=== PATIENT | male | born 1950 | race Caucasian/White ===

== ENCOUNTER 2018-07-24 09:23 | Outpatient (CLI) | payer MEDICARE, OTHER ==
[~2018-07-24 09:23] MED LIST: AMLO5TAB4 PO; BUPR150T8 PO; CHOL400C8 PO; CLOP75TA15 PO; CYA500T PO; CYCL-1 PO; ESCI5TAB PO; FINA5TAB11 PO; FLAX1CAP4 PO; GLYB5TAB7 PO; ISOS30TA6 PO; KRIL1CAP12 PO; LOSA50TA3 PO; METF500T7 PO; METO-395 PO; MULT-1085 PO; OMEG1CAP2 PO; PITA4TAB2 PO; UBID30CA8 PO; ZINC50TA60 PO
[2018-07-24] MEDS ORDERED: TAMS0.4C32 PO (11:05)
[2018-07-24] MEDS ORDERED: SIMV10TA6 PO (11:05)
--- NOTE | 2018-07-24 11:06 | NUR ---
Patient ambulated independently from [facility] and was admitted to outpatient wound care for physician visit with Forrest Mark MD. Dressing removed, wound cleansed and lidocaine applied per order. Patient assessed for changes in conditions, medications and medical history. Dr. Mark at bedside accompanied by RN. Wound assessed, time out performed by MD/RN. Wound debrided as detailed in the physician progress/procedure note. Plan of care discussed with patient. Dressings placed per MD orders. BELKIS done today. Patient instructed on the signs and symptoms of infection and to call the Wound Center if any occur or to go to the ED if we are closed: Increased pain in wound Increase in drainage from the wound Redness in the skin surrounding the wound Bleeding from the wound Temperature of 101 or greater Patient instructed that elevated blood sugars delay healing of the wound and can cause further complications including but not limited to amputation of toes or feet. Patient instructed that the weight of their body puts a large amount of pressure on their wounds. This pressure keeps the new tissue from growing and inhibits new blood vessels from forming. Explained that, if they continue to bear weight on a body part that has a wound, the time it takes to heal the wound increases, the wound may get worse or the wound may not heal at all. Patient verbalized understanding of all discharge instructions and plan of care and ambulated independently out to [facility] in stable condition with no sign or symptom of distress at time of discharge. Addendum: 07/24/18 at 1108 by Bhargavi Cunningham RN Amended: Links added.
== END 2018-07-24 12:05 | disposition home or self-care (01) ==
LOC: WOUND CARE 09:23 → EDSTATUS 09:30 → WOUND CARE 12:05
PROVIDERS: ATTEND Surgery
DX: E11.622 Type 2 diabetes mellitus with other skin ulcer (principal); L89.899 Pressure ulcer of other site, unspecified stage; L97.221 Non-pressure chronic ulcer of left calf limited to breakdown of skin; I12.9 Hypertensive chronic kidney disease with stage 1 through stage 4 chronic kidney disease, or unspecified chronic kidney disease; N18.3 Chronic kidney disease, stage 3 (moderate); E78.5 Hyperlipidemia, unspecified; E66.9 Obesity, unspecified; I25.2 Old myocardial infarction; I25.10 Atherosclerotic heart disease of native coronary artery without angina pectoris; M17.11 Unilateral primary osteoarthritis, right knee; F41.8 Other specified anxiety disorders; F32.9 Major depressive disorder, single episode, unspecified; Z95.1 Presence of aortocoronary bypass graft; Z79.1 Long term (current) use of non-steroidal anti-inflammatories (NSAID); Z68.34 Body mass index [BMI] 34.0-34.9, adult; Z96.698 Presence of other orthopedic joint implants
CPT/HCPCS: 36416; 82948; 93922; 93926; G0463; A6196; A6212

== ENCOUNTER 2018-07-29 09:15 | Day surgery (SDC) | payer MEDICARE, OTHER ==
[~2018-07-29 09:15] MED LIST changes: -CLOP75TA15 PO; -CYCL-1 PO; -FINA5TAB11 PO; -FLAX1CAP4 PO; -ISOS30TA6 PO; -LOSA50TA3 PO; -OMEG1CAP2 PO; -PITA4TAB2 PO; +SIMV10TA6 PO; +TAMS0.4C32 PO; -UBID30CA8 PO; -ZINC50TA60 PO
[2018-07-29] MEDS ORDERED: LIDOcaine/PRILOcaine 5gm cream TP ONE (09:40)
--- NOTE | 2018-07-29 12:59 | NUR ---
Patient ambulated independently from [facility] and was admitted to outpatient wound care for physician visit with Forrest Mark MD. Dressing removed, wound cleansed and lidocaine applied per order. Patient assessed for changes in conditions, medications and medical history. Dr. Mark at bedside accompanied by RN. Wound assessed, time out performed by MD/RN. Wound debrided as detailed in the physician progress/procedure note. Plan of care discussed with patient. Dressings placed per MD orders. Patient instructed on the signs and symptoms of infection and to call the Wound Center if any occur or to go to the ED if we are closed: Increased pain in wound Increase in drainage from the wound Redness in the skin surrounding the wound Bleeding from the wound Temperature of 101 or greater Patient instructed that elevated blood sugars delay healing of the wound and can cause further complications including but not limited to amputation of toes or feet. Patient instructed that the weight of their body puts a large amount of pressure on their wounds. This pressure keeps the new tissue from growing and inhibits new blood vessels from forming. Explained that, if they continue to bear weight on a body part that has a wound, the time it takes to heal the wound increases, the wound may get worse or the wound may not heal at all. Patient verbalized understanding of all discharge instructions and plan of care and ambulated independently out to [facility] in stable condition with no sign or symptom of distress at time of discharge. Addendum: 07/29/18 at 1301 by Bhargavi Cunningham RN Amended: Links added.
== END 2018-07-29 10:42 | disposition home or self-care (01) ==
LOC: WOUND CARE 09:15
PROVIDERS: ATTEND Surgery
DX: E11.622 Type 2 diabetes mellitus with other skin ulcer (principal); L89.899 Pressure ulcer of other site, unspecified stage; L97.221 Non-pressure chronic ulcer of left calf limited to breakdown of skin; I12.9 Hypertensive chronic kidney disease with stage 1 through stage 4 chronic kidney disease, or unspecified chronic kidney disease; N18.3 Chronic kidney disease, stage 3 (moderate); E78.5 Hyperlipidemia, unspecified; E66.9 Obesity, unspecified; I25.2 Old myocardial infarction; I25.10 Atherosclerotic heart disease of native coronary artery without angina pectoris; M17.11 Unilateral primary osteoarthritis, right knee; F41.8 Other specified anxiety disorders; F32.9 Major depressive disorder, single episode, unspecified; Z95.1 Presence of aortocoronary bypass graft; Z79.1 Long term (current) use of non-steroidal anti-inflammatories (NSAID); Z68.34 Body mass index [BMI] 34.0-34.9, adult; Z96.698 Presence of other orthopedic joint implants
CPT/HCPCS: A6021; A6212

== ENCOUNTER 2018-08-05 09:22 | Day surgery (SDC) | payer MEDICARE, OTHER ==
[2018-08-05] MEDS ORDERED: LIDOcaine/PRILOcaine 5gm cream TP ONE (09:48)
[2018-08-05] MEDS ORDERED: LIDOcaine 1%/PF 5ML 10 MG/ML VIAL ONE ×2 (10:20→10:23)
--- NOTE | 2018-08-05 15:02 | NUR ---
0900 Patient ambulated safely into [facility]. Patient admitted to outpatient wound care clinic for follow-up visit with physician. Patient placed in isolation per isolation protocol. Dressing removed, wound cleansed. Patient assessed for changes in conditions, medications and medical history. Patient showed no s/s of distress at time of assessment. 1015 at bedside accompanied by RN. Wounds assessed, time out performed and debridement and biopsy done today as detailed in the physician progress/procedure note. Plan of care discussed with patient. Dressings placed per MD orders. Patient instructed on the signs and symptoms of infection and to call the Wound Center if any occur or to go to the ED if we are closed: Increased pain in wound Increase in drainage from the wound Redness in the skin surrounding the wound Bleeding from the wound Temperature of 101 or greater Patient instructed that the weight of their body puts a large amount of pressure on their wounds. This pressure keeps the new tissue from growing and inhibits new blood vessels from forming. Explained that, if they continue to bear weight on a body part that has a wound, the time it takes to heal the wound increases, the wound may get worse or the wound may not heal at all. Patient verbalized understanding of all discharge instructions and plan of care. Patient ambulated independently out to [facility] and is in stable condition with no sign or symptom of distress at time of discharge.
== END 2018-08-05 10:55 | disposition home or self-care (01) ==
LOC: WOUND CARE 09:22
PROVIDERS: ATTEND Surgery
DX: E11.622 Type 2 diabetes mellitus with other skin ulcer (principal); L89.893 Pressure ulcer of other site, stage 3; L97.222 Non-pressure chronic ulcer of left calf with fat layer exposed; I12.9 Hypertensive chronic kidney disease with stage 1 through stage 4 chronic kidney disease, or unspecified chronic kidney disease; N18.3 Chronic kidney disease, stage 3 (moderate); E11.65 Type 2 diabetes mellitus with hyperglycemia; E78.5 Hyperlipidemia, unspecified; E66.9 Obesity, unspecified; I25.2 Old myocardial infarction; I25.10 Atherosclerotic heart disease of native coronary artery without angina pectoris; M17.11 Unilateral primary osteoarthritis, right knee; F41.8 Other specified anxiety disorders; F32.9 Major depressive disorder, single episode, unspecified; Z95.1 Presence of aortocoronary bypass graft; Z79.1 Long term (current) use of non-steroidal anti-inflammatories (NSAID); Z68.34 Body mass index [BMI] 34.0-34.9, adult; Z96.698 Presence of other orthopedic joint implants
CPT/HCPCS: 11042; 82948; 87070; 87075; 87102; 87176; A6222; J2001; 87077; 87186; 88304; A6021; A6446

== ENCOUNTER 2018-08-12 09:20 | Day surgery (SDC) | payer MEDICARE, OTHER ==
[2018-08-12] MEDS ORDERED: LIDOcaine/PRILOcaine 5gm cream TP ONE ×2 (09:50→10:13)
[2018-08-12] MEDS ORDERED: cadexomer iodine 40gm GEL.GM TP ONE (10:54)
--- NOTE | 2018-08-12 11:30 | NUR ---
Patient ambulated independently from lobby accompanied by family member and was admitted to outpatient wound care for physician visit with Forrest Mark MD. Dressing removed, wound cleansed and Emla cream applied per order. Patient assessed for changes in conditions, medications and medical history. 0940 - blood glucose 79. Patient instructed that elevated blood sugars delay healing of the wound and can cause further complications including but not limited to amputation of toes or feet. 1030 - Dr. Mark at bedside accompanied by RN. Wound assessed, time out performed by MD/RN. Wound debrided as detailed in the physician progress/procedure note. Plan of care discussed with patient. Dressings placed per MD orders. Patient instructed on the signs and symptoms of infection and to call the Wound Center if any occur or to go to the ED if we are closed: Increased pain in wound Increase in drainage from the wound Redness in the skin surrounding the wound Bleeding from the wound Temperature of 101 or greater Patient instructed that the weight of their body puts a large amount of pressure on their wounds. This pressure keeps the new tissue from growing and inhibits new blood vessels from forming. Explained that, if they continue to bear weight on a body part that has a wound, the time it takes to heal the wound increases, the wound may get worse or the wound may not heal at all. Patient verbalized understanding of all discharge instructions and plan of care and ambulated independently out to lobby accompanied by family member and is in stable condition with no sign or symptom of distress at time of discharge.
== END 2018-08-12 11:15 | disposition home or self-care (01) ==
LOC: WOUND CARE 09:20
PROVIDERS: ATTEND Surgery
DX: E11.622 Type 2 diabetes mellitus with other skin ulcer (principal); L89.893 Pressure ulcer of other site, stage 3; L97.222 Non-pressure chronic ulcer of left calf with fat layer exposed; I12.9 Hypertensive chronic kidney disease with stage 1 through stage 4 chronic kidney disease, or unspecified chronic kidney disease; N18.3 Chronic kidney disease, stage 3 (moderate); E11.65 Type 2 diabetes mellitus with hyperglycemia; E78.5 Hyperlipidemia, unspecified; E66.9 Obesity, unspecified; I25.2 Old myocardial infarction; I25.10 Atherosclerotic heart disease of native coronary artery without angina pectoris; M17.11 Unilateral primary osteoarthritis, right knee; F41.8 Other specified anxiety disorders; F32.9 Major depressive disorder, single episode, unspecified; Z95.1 Presence of aortocoronary bypass graft; Z79.1 Long term (current) use of non-steroidal anti-inflammatories (NSAID); Z68.34 Body mass index [BMI] 34.0-34.9, adult; Z96.698 Presence of other orthopedic joint implants
CPT/HCPCS: 36415; 36416; 82948; 85651; 97597; A6446

== ENCOUNTER 2018-08-15 13:41 | Inpatient (IN) | payer MEDICARE, OTHER ==
[~2018-08-15] VITALS: Ht 175.3 cm; Wt 114.0 kg
[2018-08-15] MEDS ORDERED: normal saline 1000ML IV soln IVB ONE (15:45)
[2018-08-15] MEDS ORDERED: vancomycin/NS 1 GM ADD-VANTAGE 250 ML IV ONE ×2 (15:55→16:10)
[2018-08-15] MEDS ORDERED: piperacillin/tazo 3.375gm/50ml 50 ML IV ONE (16:10)
[2018-08-15 16:21] LABS: BASOPHILS % (AUTO) 0.3 % (0-1); EOSINOPHILS # (AUTO) 0.3 X10'3 (0-0.9); EOSINOPHILS % (AUTO) 4.7 % (0-6); HEMATOCRIT 39.2 % (42.0-52.0); HEMOGLOBIN 12.6 g/dl (14.0-17.9); LYMPHOCYTES # (AUTO) 1.8 X10'3 (1.1-4.8); LYMPHOCYTES % (AUTO) 25.4 % (21-51); MEAN CORPUSCULAR HEMOGLOBIN 29.4 PG (27.0-31.0); MEAN CORPUSCULAR HGB CONC 32.2 g/dL (33.0-36.5); MEAN CORPUSCULAR VOLUME 91.3 FL (78-98); MEAN PLATELET VOLUME 8.3 FL (7.4-10.4); MONOCYTES # (AUTO) 0.9 X10'3 (0-0.9); MONOCYTES % (AUTO) 11.9 % (2-12); NEUTROPHILS # (AUTO) 4.1 X10'3 (1.8-7.7); NEUTROPHILS % (AUTO) 57.7 % (42-75); PLATELET COUNT 221 X10'3 (140-440); RED BLOOD COUNT 4.29 X10'6 (4.70-6.10); RED CELL DISTRIBUTION WIDTH 14.1 % (11.5-14.5); WHITE BLOOD COUNT 7.2 X10'3 (4.5-11.0)
[2018-08-15 16:33] LABS: ALANINE AMINOTRANSFERASE 25 U/L (12-78); ALBUMIN 3.3 G/DL (3.4-5.0); ALBUMIN/GLOBULIN RATIO 0.9 (1.1-1.5); ALKALINE PHOSPHATASE 65 IU/L (46-116); ANION GAP 8 (8-16); ASPARTATE AMINO TRANSFERASE 17 U/L (10-37); BILIRUBIN,TOTAL 0.2 MG/DL (0.1-1.0); BLOOD UREA NITROGEN 29 MG/DL (7-18); BUN/CREATININE RATIO 22.1 (5.4-32.0); CALCIUM 9.2 MG/DL (8.5-10.1); CHLORIDE 109 MMOL/L (99-107); CREATININE 1.31 MG/DL (0.60-1.10); GLUCOSE 108 MG/DL (70-104); POTASSIUM 4.7 MMOL/L (3.5-5.1); SODIUM 143 MMOL/L (135-145); TOTAL CARBON DIOXIDE 26.5 MMOL/L (24-32); TOTAL PROTEIN 6.9 G/DL (6.4-8.2); eGFR 54 ML/MIN
[2018-08-15 17:05] LABS: INR 2.1 INR; PROTHROMBIN TIME 20.7 SECONDS (9.0-12.0)
[2018-08-15] MEDS: normal saline 1000ml 1,000 ML IV SCH (18:24)
[2018-08-15] MEDS ORDERED: ondansetron/PF 4mg/2ml inj IV PRN (18:25)
[2018-08-15] MEDS ORDERED: magnesium hydroxide 30ml (MOM) UD suspension PO PRN (18:25)
[2018-08-15] MEDS ORDERED: potassium Cl 40MEQ/NS 500ml 500 ML IV PRN ×2 (18:25)
[2018-08-15] MEDS ORDERED: potassium Cl 20 mEq SR tablet PO PRN ×2 (18:25)
[2018-08-15] MEDS ORDERED: magnesium 2GM in 50ml NS 50 ML IV PRN (18:25)
[2018-08-15] MEDS ORDERED: mag hydrox/Alum hydrox/simeth 30ml oral suspension PO PRN (18:25)
[2018-08-15] MEDS ORDERED: morphine 4 MG/ML inj SYRINge IV PRN (18:25)
[2018-08-15] MEDS ORDERED: magnesium 4gm in 100ml NS 100 ML IV PRN (18:25)
[2018-08-15] MEDS ORDERED: acetaminophen 325mg tablet PO PRN (18:25)
[2018-08-15] MEDS ORDERED: MESSAGE TO PHARMACY PO ONE (18:30)
[2018-08-15] MEDS ORDERED: glucagon, human recombinant 1mg kit SUBCUT PRN (18:30)
[2018-08-15] MEDS ORDERED: dextrose 50%-water 50ml dispensing syringe IV PRN ×2 (18:30)
[2018-08-15] MEDS ORDERED: insulin Lispro (HumaLOG) vial - multi-dose SQ SCH (18:30)
[2018-08-15] MEDS ORDERED: dextrose ORAL solution 15 GM/59 ML bottle PO PRN ×2 (18:30)
[2018-08-15] MEDS ORDERED: gadopentetate dimeglumine 10 MMOL/20 ML syringe IV ONE (19:24)
[2018-08-15] MEDS ORDERED: APAP (20:02)
[2018-08-15] MEDS ORDERED: METFORMIN TAB 1000MG (20:02)
[2018-08-15] MEDS ORDERED: CODEINE (20:02)
[2018-08-15] MEDS ORDERED: DIGOXIN 0.125 MG (20:02)
[2018-08-15] MEDS ORDERED: CIPROFLOXACIN HCL 500 MG PO (20:02)
[2018-08-15] MEDS ORDERED: ESCITALOPRAM TAB 20MG (20:02)
[2018-08-15] MEDS ORDERED: JANTOVEN 5 MG (20:02)
[2018-08-15] MEDS ORDERED: TAMSULOSIN CAP 0.4MG (20:02)
[2018-08-15] MEDS ORDERED: AMLODIPINE TAB 5MG (20:02)
[2018-08-15] MEDS ORDERED: METFORMIN TAB 500MG (20:02)
[2018-08-15] MEDS ORDERED: METOPROLOL SUCCINATE 50 MG (20:02)
[2018-08-15] MEDS ORDERED: SIMVASTATIN TAB 20MG (20:02)
[2018-08-15] MEDS: vancomycin/NS 1 GM ADD-VANTAGE 250 ML X 1 DOSE IV SCH ×2 (20:18→22:57)
[2018-08-15] MEDS: heparin, porcine 5000 units/ml vial SQ SCH (20:30)
[2018-08-15] MEDS: insulin glargine (Lantus) pen - multi-dose SQ SCH (21:00)
[2018-08-15] MEDS ORDERED: GLIP10TA11 PO (21:28)
--- NOTE | 2018-08-15 22:41 | NUR ---
PT PLACED ON HOSPITAL BED
[2018-08-16 01:00] VITALS: BP 172/82
[2018-08-16] MEDS: acetaminophen 325mg tablet PO PRN ×3 (01:32→17:19)
[2018-08-16 06:07] LABS: ALANINE AMINOTRANSFERASE 25 U/L (12-78); ALBUMIN/GLOBULIN RATIO 0.9 (1.1-1.5); ALKALINE PHOSPHATASE 61 IU/L (46-116); ANION GAP 8 (8-16); ASPARTATE AMINO TRANSFERASE 18 U/L (10-37); BILIRUBIN,TOTAL 0.4 MG/DL (0.1-1.0); BLOOD UREA NITROGEN 25 MG/DL (7-18); BUN/CREATININE RATIO 20.7 (5.4-32.0); CALCIUM 8.7 MG/DL (8.5-10.1); CHLORIDE 110 MMOL/L (99-107); CREATININE 1.21 MG/DL (0.60-1.10); GLUCOSE 100 MG/DL (70-104); MAGNESIUM 1.3 MG/DL (1.5-2.4); POTASSIUM 4.5 MMOL/L (3.5-5.1); SODIUM 142 MMOL/L (135-145); TOTAL CARBON DIOXIDE 23.6 MMOL/L (24-32); TOTAL PROTEIN 6.4 G/DL (6.4-8.2); eGFR 60 ML/MIN
[2018-08-16 06:09] LABS: BASOPHILS % (AUTO) 0.4 % (0-1); EOSINOPHILS # (AUTO) 0.3 X10'3 (0-0.9); EOSINOPHILS % (AUTO) 4.6 % (0-6); HEMATOCRIT 37.1 % (42.0-52.0); HEMOGLOBIN 12.5 g/dl (14.0-17.9); LYMPHOCYTES # (AUTO) 1.8 X10'3 (1.1-4.8); LYMPHOCYTES % (AUTO) 24.5 % (21-51); MEAN CORPUSCULAR HEMOGLOBIN 30.3 PG (27.0-31.0); MEAN CORPUSCULAR HGB CONC 33.6 g/dL (33.0-36.5); MEAN CORPUSCULAR VOLUME 90.1 FL (78-98); MEAN PLATELET VOLUME 8.5 FL (7.4-10.4); MONOCYTES # (AUTO) 0.8 X10'3 (0-0.9); MONOCYTES % (AUTO) 11.1 % (2-12); NEUTROPHILS # (AUTO) 4.4 X10'3 (1.8-7.7); NEUTROPHILS % (AUTO) 59.4 % (42-75); PLATELET COUNT 192 X10'3 (140-440); RED BLOOD COUNT 4.12 X10'6 (4.70-6.10); RED CELL DISTRIBUTION WIDTH 14.3 % (11.5-14.5); WHITE BLOOD COUNT 7.3 X10'3 (4.5-11.0)
--- NOTE | 2018-08-16 06:28 | NUR ---
Patient in room [facility]. I have received report from Lizette WILKES and had the opportunity to ask questions and assume patient care.
[2018-08-16] MEDS: normal saline 1000ml 1,000 ML IV SCH ×2 (06:31→23:36)
--- NOTE | 2018-08-16 06:32 | NUR ---
Problems reprioritized. Patient report given, questions answered & plan of care reviewed with KATRIN Ceballos. Addendum: 08/16/18 at 0634 by Hamida Piedra RN Problems reprioritized. Patient report given, questions answered & plan of care reviewed with KATRIN Light.
[2018-08-16] MEDS: heparin, porcine 5000 units/ml vial SQ SCH ×2 (07:52→19:50)
[2018-08-16] MEDS: magnesium Cl slow-release 64mg tablet PO PRN ×2 (07:53→17:18)
[2018-08-16] MEDS ORDERED: warfarin 5mg tablet PO ONE (08:00)
[2018-08-16] MEDS: K and/or MAG REPLACEMENT MC SCH (08:00)
[2018-08-16 09:00] VITALS: BP 125/79
[2018-08-16] MEDS ORDERED: METO-384 PO (09:26)
[2018-08-16] MEDS ORDERED: WARF-55 PO ×3 (09:41→17:45)
[2018-08-16] MEDS ORDERED: BUPR150T6 PO (09:41)
[2018-08-16] MEDS ORDERED: METF-438 PO (09:41)
[2018-08-16] MEDS ORDERED: DIGO125T97 PO (09:41)
[2018-08-16] MEDS ORDERED: FLO0.4C PO (09:41)
[2018-08-16] MEDS: amLODIPine 5mg tablet PO SCH (11:49)
--- NOTE | 2018-08-16 16:55 | NUR ---
PATIENT SEEN BY dR Philippe, ORDERED STOOL SAMPLE IF MEETS CRITERIA. sTOOL SAMPLE TOO FORMED SAMPLE NOT SENT. DRESSING APPLIED TO WOUND ON LEFT LEG. PATIENT INDEP TO BATHROOM.
[2018-08-16] MEDS: vitamin D (cholecalciferol) 1,000 unit tablet PO SCH (19:49)
[2018-08-16] MEDS: metFORMIN 500mg tablet PO SCH (19:49)
[2018-08-16] MEDS: cyanocobalamin 500mcg tablet PO SCH (19:49)
[2018-08-16] MEDS: Dakins solution (1/4 strength) 473ml solution TP SCH (19:50)
[2018-08-16 20:00] VITALS: BP 177/67
[2018-08-16] MEDS ORDERED: KRILL PO SCH (20:00)
[2018-08-16] MEDS ORDERED: EPA PO SCH (20:00)
[2018-08-16] MEDS ORDERED: glipizide 5mg tablet PO SCH (20:00)
[2018-08-16] MEDS ORDERED: DHA PO SCH (20:00)
[2018-08-16] MEDS ORDERED: OMEGA PO SCH (20:00)
[2018-08-16] MEDS ORDERED: LIPIDS PO SCH (20:00)
[2018-08-16] MEDS ORDERED: warfarin 5mg tablet PO SCH (20:15)
[2018-08-16] MEDS: citalopram 20mg tablet PO SCH (20:19)
[2018-08-16] MEDS: buPROPion SR 150mg tablet PO SCH (20:20)
[2018-08-16] MEDS: atorvastatin 10mg tablet PO SCH (20:20)
[2018-08-16] MEDS: insulin glargine (Lantus) pen - multi-dose SQ SCH (20:52)
[2018-08-16] MEDS: hyDRALAzine 10mg tablet PO PRN (21:09)
[2018-08-16 22:33] LABS: INR 1.4 INR; PROTHROMBIN TIME 14.2 SECONDS (9.0-12.0)
[2018-08-17] VITALS (7 sets, daily range): BP systolic 132–183; BP diastolic 54–69
--- NOTE | 2018-08-17 00:18 | NUR ---
Problems reprioritized. Patient report given, questions answered & plan of care reviewed with alexandre WILKES.
[2018-08-17] MEDS: HYDROcodone/acetaminophen 5mg/325mg tablet PO PRN ×3 (01:06→22:54)
[2018-08-17 05:55] LABS: BASOPHILS % (AUTO) 0.3 % (0-1); EOSINOPHILS # (AUTO) 0.4 X10'3 (0-0.9); EOSINOPHILS % (AUTO) 4.5 % (0-6); HEMATOCRIT 39.2 % (42.0-52.0); HEMOGLOBIN 12.8 g/dl (14.0-17.9); LYMPHOCYTES # (AUTO) 1.7 X10'3 (1.1-4.8); LYMPHOCYTES % (AUTO) 20.9 % (21-51); MEAN CORPUSCULAR HEMOGLOBIN 29.8 PG (27.0-31.0); MEAN CORPUSCULAR HGB CONC 32.7 g/dL (33.0-36.5); MEAN CORPUSCULAR VOLUME 90.9 FL (78-98); MEAN PLATELET VOLUME 8.4 FL (7.4-10.4); MONOCYTES # (AUTO) 0.8 X10'3 (0-0.9); MONOCYTES % (AUTO) 10.2 % (2-12); NEUTROPHILS # (AUTO) 5.2 X10'3 (1.8-7.7); NEUTROPHILS % (AUTO) 64.1 % (42-75); PLATELET COUNT 171 X10'3 (140-440); RED BLOOD COUNT 4.31 X10'6 (4.70-6.10); RED CELL DISTRIBUTION WIDTH 14.1 % (11.5-14.5)
[2018-08-17 06:13] LABS: INR 1.3 INR; PROTHROMBIN TIME 12.9 SECONDS (9.0-12.0)
[2018-08-17 07:49] LABS: POTASSIUM 4.5 MMOL/L (3.5-5.1); SODIUM 144 MMOL/L (135-145)
[2018-08-17] MEDS ORDERED: metoprolol succinate 25mg (24-HOUR) SR. Tablet PO SCH (08:00)
[2018-08-17] MEDS ORDERED: buproprion 150mg XL (24-hour) tablet PO SCH (08:00)
[2018-08-17] MEDS: K and/or MAG REPLACEMENT MC SCH (08:00)
[2018-08-17] MEDS ORDERED: warfarin 5mg tablet PO SCH (08:00)
[2018-08-17 08:10] LABS: ALANINE AMINOTRANSFERASE 22 U/L (12-78); ALBUMIN/GLOBULIN RATIO 0.9 (1.1-1.5); ANION GAP 12 (8-16); ASPARTATE AMINO TRANSFERASE 16 U/L (10-37); BILIRUBIN,TOTAL 0.3 MG/DL (0.1-1.0); BLOOD UREA NITROGEN 21 MG/DL (7-18); BUN/CREATININE RATIO 18.9 (5.4-32.0); CALCIUM 9.2 MG/DL (8.5-10.1); CHLORIDE 111 MMOL/L (99-107); CREATININE 1.11 MG/DL (0.60-1.10); GLUCOSE 60 MG/DL (70-104); MAGNESIUM 1.4 MG/DL (1.5-2.4); TOTAL CARBON DIOXIDE 21.3 MMOL/L (24-32); TOTAL PROTEIN 6.5 G/DL (6.4-8.2); eGFR 66 ML/MIN
[2018-08-17 08:13] LABS: ALKALINE PHOSPHATASE 58 IU/L (46-116)
[2018-08-17] MEDS: multivitamins, therapeutics tablet PO SCH (08:30)
[2018-08-17] MEDS: vitamin D (cholecalciferol) 1,000 unit tablet PO SCH ×2 (08:30→19:04)
[2018-08-17] MEDS: tamsulosin 0.4mg capsule PO SCH (08:31)
[2018-08-17] MEDS: metFORMIN 500mg tablet PO SCH ×2 (08:31→19:04)
[2018-08-17] MEDS: digoxin 125mcg (0.125mg) tablet PO SCH (08:31)
[2018-08-17] MEDS: metoprolol succinate 25mg (24-HOUR) SR. Tablet PO SCH (08:32)
[2018-08-17] MEDS: cyanocobalamin 500mcg tablet PO SCH ×2 (08:32→19:03)
[2018-08-17] MEDS: amLODIPine 5mg tablet PO SCH (08:32)
[2018-08-17] MEDS: heparin, porcine 5000 units/ml vial SQ SCH ×2 (08:33→19:05)
[2018-08-17] MEDS: Dakins solution (1/4 strength) 473ml solution TP SCH ×2 (10:09→19:07)
--- NOTE | 2018-08-17 11:13 | NUR ---
Dr Santamaria paged regarding results of ultrasound.
[2018-08-17] MEDS: hyDRALAzine 10mg tablet PO PRN ×2 (12:05→18:56)
[2018-08-17] MEDS: magnesium Cl slow-release 64mg tablet PO PRN (12:11)
--- NOTE | 2018-08-17 12:30 | NUR ---
Dr Santamaria paged regarding pt's HR 47-55. He is not concerned at this time. Continue to monitor. Pt is on digoxin, no digoxin level has been ordered. Dr Santamaria aware, he does not want one ordered for now. Pt's BP was 185 systolic, prn hydralizine order given
[2018-08-17] MEDS: normal saline 1000ml 1,000 ML IV SCH ×2 (13:18→21:10)
--- NOTE | 2018-08-17 18:52 | NUR ---
Problems reprioritized. Patient report given, questions answered & plan of care reviewed with GLENIS WILKES.
[2018-08-17] MEDS: insulin glargine (Lantus) pen - multi-dose SQ SCH (21:00)
[2018-08-17] MEDS ORDERED: warfarin 5mg tablet PO ONE (21:00)
[2018-08-17] MEDS: buPROPion SR 150mg tablet PO SCH (21:11)
[2018-08-17] MEDS: atorvastatin 10mg tablet PO SCH (21:11)
[2018-08-17] MEDS: citalopram 20mg tablet PO SCH (21:11)
[2018-08-17] MEDS ORDERED: VANCOMYCIN LEVEL IV NR (22:30)
[2018-08-18] VITALS: BP 128/77
[2018-08-18 06:45] LABS: BASOPHILS % (AUTO) 0.4 % (0-1); EOSINOPHILS # (AUTO) 0.5 X10'3 (0-0.9); EOSINOPHILS % (AUTO) 7.3 % (0-6); HEMATOCRIT 37.6 % (42.0-52.0); HEMOGLOBIN 12.5 g/dl (14.0-17.9); LYMPHOCYTES # (AUTO) 1.7 X10'3 (1.1-4.8); LYMPHOCYTES % (AUTO) 23.7 % (21-51); MEAN CORPUSCULAR HEMOGLOBIN 30.2 PG (27.0-31.0); MEAN CORPUSCULAR HGB CONC 33.3 g/dL (33.0-36.5); MEAN CORPUSCULAR VOLUME 90.7 FL (78-98); MEAN PLATELET VOLUME 8.3 FL (7.4-10.4); MONOCYTES # (AUTO) 0.8 X10'3 (0-0.9); NEUTROPHILS % (AUTO) 57.6 % (42-75); PLATELET COUNT 155 X10'3 (140-440); RED BLOOD COUNT 4.15 X10'6 (4.70-6.10); RED CELL DISTRIBUTION WIDTH 13.9 % (11.5-14.5)
--- NOTE | 2018-08-18 06:48 | NUR ---
Problems reprioritized. Patient report given, questions answered & plan of care reviewed with KERI WILKES
[2018-08-18 06:53] LABS: INR 1.2 INR; PROTHROMBIN TIME 12.2 SECONDS (9.0-12.0)
[2018-08-18 07:11] LABS: ALANINE AMINOTRANSFERASE 19 U/L (12-78); ALBUMIN 2.8 G/DL (3.4-5.0); ALBUMIN/GLOBULIN RATIO 0.8 (1.1-1.5); ALKALINE PHOSPHATASE 57 IU/L (46-116); ANION GAP 9 (8-16); ASPARTATE AMINO TRANSFERASE 14 U/L (10-37); BILIRUBIN,TOTAL 0.3 MG/DL (0.1-1.0); BLOOD UREA NITROGEN 20 MG/DL (7-18); BUN/CREATININE RATIO 17.7 (5.4-32.0); CALCIUM 8.7 MG/DL (8.5-10.1); CHLORIDE 110 MMOL/L (99-107); CREATININE 1.13 MG/DL (0.60-1.10); GLUCOSE 100 MG/DL (70-104); MAGNESIUM 1.3 MG/DL (1.5-2.4); POTASSIUM 4.8 MMOL/L (3.5-5.1); SODIUM 142 MMOL/L (135-145); TOTAL CARBON DIOXIDE 23.3 MMOL/L (24-32); TOTAL PROTEIN 6.2 G/DL (6.4-8.2); eGFR 65 ML/MIN
[2018-08-18 07:30] VITALS: BP 127/54
[2018-08-18] MEDS: K and/or MAG REPLACEMENT MC SCH (08:00)
[2018-08-18] MEDS: metoprolol succinate 25mg (24-HOUR) SR. Tablet PO SCH (08:00)
[2018-08-18] MEDS: tamsulosin 0.4mg capsule PO SCH (08:07)
[2018-08-18] MEDS: vitamin D (cholecalciferol) 1,000 unit tablet PO SCH ×2 (08:07→21:12)
[2018-08-18] MEDS: metFORMIN 500mg tablet PO SCH ×2 (08:08→21:12)
[2018-08-18] MEDS: cyanocobalamin 500mcg tablet PO SCH ×2 (08:08→21:10)
[2018-08-18] MEDS: multivitamins, therapeutics tablet PO SCH (08:08)
[2018-08-18] MEDS: heparin, porcine 5000 units/ml vial SQ SCH ×2 (08:09→21:10)
--- NOTE | 2018-08-18 08:51 | NUR ---
paged MD about low heart rate and medications. awaiting response before administering 8am bp meds and digoxin.
--- NOTE | 2018-08-18 09:15 | NUR ---
MD aware of pulse 47. Ordered to still give both digoxin and amlodipine.
[2018-08-18] MEDS: amLODIPine 5mg tablet PO SCH (09:24)
[2018-08-18] MEDS: digoxin 125mcg (0.125mg) tablet PO SCH (09:25)
[2018-08-18] MEDS: Dakins solution (1/4 strength) 473ml solution TP SCH ×2 (09:26→21:13)
--- NOTE | 2018-08-18 09:38 | NUR ---
patient dressing changed per MD orders
[2018-08-18] MEDS: HYDROcodone/acetaminophen 5mg/325mg tablet PO PRN ×2 (11:04→21:33)
[2018-08-18] MEDS: vancomycin inj 1,250 MG in normal saline 250ml IV soln 250 ML IV SCH ×2 (11:09→22:58)
[2018-08-18 13:07] VITALS: BP 132/66
[2018-08-18] MEDS: magnesium Cl slow-release 64mg tablet PO PRN (17:03)
[2018-08-18] MEDS: normal saline 1000ml 1,000 ML IV SCH ×2 (17:54→18:51)
[2018-08-18 18:00] VITALS: BP 149/60
--- NOTE | 2018-08-18 18:53 | NUR ---
Problems reprioritized. Patient report given, questions answered & plan of care reviewed with KATRIN Frank.
--- NOTE | 2018-08-18 18:54 | NUR ---
Patient in room [facility] 356. I have received report from KATRIN Henry and had the opportunity to ask questions and assume patient care.
[2018-08-18] MEDS ORDERED: warfarin 7.5mg tablet PO ONE (21:00)
[2018-08-18] MEDS: insulin glargine (Lantus) pen - multi-dose SQ SCH (21:00)
[2018-08-18] MEDS: buPROPion SR 150mg tablet PO SCH (21:11)
[2018-08-18] MEDS: citalopram 20mg tablet PO SCH (21:11)
[2018-08-18] MEDS: atorvastatin 10mg tablet PO SCH (21:11)
[2018-08-19] VITALS: BP 137/77
[2018-08-19] MEDS: HYDROcodone/acetaminophen 5mg/325mg tablet PO PRN ×3 (04:36→20:34)
--- NOTE | 2018-08-19 06:50 | NUR ---
Problems reprioritized. Patient report given, questions answered & plan of care reviewed with KATRIN Sandoval.
[2018-08-19] MEDS ORDERED: magnesium 2GM in 50ml NS 50 ML IV PRN (07:15)
[2018-08-19] MEDS ORDERED: magnesium 4gm in 100ml NS 100 ML IV PRN (07:15)
[2018-08-19] MEDS ORDERED: potassium Cl 20 mEq SR tablet PO PRN ×2 (07:15)
[2018-08-19] MEDS ORDERED: potassium Cl 40MEQ/NS 500ml 500 ML IV PRN ×2 (07:15)
[2018-08-19 07:40] LABS: BASOPHILS % (AUTO) 0.5 % (0-1); EOSINOPHILS # (AUTO) 0.4 X10'3 (0-0.9); EOSINOPHILS % (AUTO) 5.9 % (0-6); HEMATOCRIT 36.2 % (42.0-52.0); HEMOGLOBIN 12.1 g/dl (14.0-17.9); LYMPHOCYTES # (AUTO) 1.6 X10'3 (1.1-4.8); LYMPHOCYTES % (AUTO) 20.9 % (21-51); MEAN CORPUSCULAR HEMOGLOBIN 30.2 PG (27.0-31.0); MEAN CORPUSCULAR HGB CONC 33.5 g/dL (33.0-36.5); MEAN CORPUSCULAR VOLUME 90.3 FL (78-98); MEAN PLATELET VOLUME 8.5 FL (7.4-10.4); MONOCYTES # (AUTO) 0.8 X10'3 (0-0.9); MONOCYTES % (AUTO) 10.2 % (2-12); NEUTROPHILS # (AUTO) 4.8 X10'3 (1.8-7.7); NEUTROPHILS % (AUTO) 62.5 % (42-75); PLATELET COUNT 145 X10'3 (140-440); RED CELL DISTRIBUTION WIDTH 14.1 % (11.5-14.5); WHITE BLOOD COUNT 7.6 X10'3 (4.5-11.0)
[2018-08-19 07:54] LABS: ALANINE AMINOTRANSFERASE 21 U/L (12-78); ALBUMIN 2.8 G/DL (3.4-5.0); ALBUMIN/GLOBULIN RATIO 0.8 (1.1-1.5); ALKALINE PHOSPHATASE 59 IU/L (46-116); ANION GAP 9 (8-16); ASPARTATE AMINO TRANSFERASE 17 U/L (10-37); BILIRUBIN,TOTAL 0.2 MG/DL (0.1-1.0); BLOOD UREA NITROGEN 24 MG/DL (7-18); BUN/CREATININE RATIO 21.6 (5.4-32.0); CALCIUM 8.9 MG/DL (8.5-10.1); CHLORIDE 110 MMOL/L (99-107); CREATININE 1.11 MG/DL (0.60-1.10); GLUCOSE 91 MG/DL (70-104); MAGNESIUM 1.4 MG/DL (1.5-2.4); POTASSIUM 4.8 MMOL/L (3.5-5.1); SODIUM 143 MMOL/L (135-145); TOTAL CARBON DIOXIDE 23.8 MMOL/L (24-32); TOTAL PROTEIN 6.1 G/DL (6.4-8.2); eGFR 66 ML/MIN
[2018-08-19 07:55] LABS: INR 1.2 INR; PROTHROMBIN TIME 12.3 SECONDS (9.0-12.0)
[2018-08-19 08:00] VITALS: BP 154/54
[2018-08-19] MEDS: digoxin 125mcg (0.125mg) tablet PO SCH (08:00)
[2018-08-19] MEDS: metoprolol succinate 25mg (24-HOUR) SR. Tablet PO SCH (08:00)
[2018-08-19] MEDS: K and/or MAG REPLACEMENT MC SCH (08:00)
[2018-08-19] MEDS: amLODIPine 5mg tablet PO SCH (09:07)
[2018-08-19] MEDS: vitamin D (cholecalciferol) 1,000 unit tablet PO SCH ×2 (09:07→20:34)
[2018-08-19] MEDS: magnesium Cl slow-release 64mg tablet PO PRN ×2 (09:08→20:34)
[2018-08-19] MEDS: multivitamins, therapeutics tablet PO SCH (09:08)
[2018-08-19] MEDS: cyanocobalamin 500mcg tablet PO SCH ×2 (09:09→20:33)
[2018-08-19] MEDS: metFORMIN 500mg tablet PO SCH ×2 (09:12→20:33)
[2018-08-19] MEDS: tamsulosin 0.4mg capsule PO SCH (09:12)
[2018-08-19] MEDS: heparin, porcine 5000 units/ml vial SQ SCH ×2 (09:14→20:32)
[2018-08-19] MEDS: vancomycin inj 1,250 MG in normal saline 250ml IV soln 250 ML IV SCH (13:53)
[2018-08-19] MEDS: normal saline 1000ml 1,000 ML IV SCH (13:54)
[2018-08-19] MEDS: Dakins solution (1/4 strength) 473ml solution TP SCH ×2 (13:54→20:41)
[2018-08-19 18:00] VITALS: BP 144/55
--- NOTE | 2018-08-19 18:59 | NUR ---
Problems reprioritized. Patient report given, questions answered & plan of care reviewed with Zac WILKES.
--- NOTE | 2018-08-19 19:00 | NUR ---
Patient in room [facility] 356. I have received report from KATRIN Sandoval and had the opportunity to ask questions and assume patient care.
[2018-08-19] MEDS: citalopram 20mg tablet PO SCH (20:33)
[2018-08-19] MEDS: buPROPion SR 150mg tablet PO SCH (20:33)
[2018-08-19] MEDS: atorvastatin 10mg tablet PO SCH (20:33)
[2018-08-19] MEDS ORDERED: warfarin 10mg tablet PO ONE (21:00)
[2018-08-19] MEDS: insulin glargine (Lantus) pen - multi-dose SQ SCH (21:00)
[2018-08-19] MEDS ORDERED: VANCOMYCIN LEVEL IV NR (22:30)
[2018-08-20] VITALS (11 sets, daily range): BP systolic 138–178; BP diastolic 45–92
[2018-08-20] MEDS: HYDROcodone/acetaminophen 5mg/325mg tablet PO PRN ×4 (01:26→22:03)
[2018-08-20] MEDS: normal saline 1000ml 1,000 ML IV SCH ×2 (04:39→23:05)
[2018-08-20 05:57] LABS: BASOPHILS # (AUTO) 0.1 X10'3 (0-0.2); BASOPHILS % (AUTO) 0.8 % (0-1); EOSINOPHILS # (AUTO) 0.4 X10'3 (0-0.9); EOSINOPHILS % (AUTO) 6.2 % (0-6); HEMATOCRIT 35.3 % (42.0-52.0); HEMOGLOBIN 11.8 g/dl (14.0-17.9); LYMPHOCYTES # (AUTO) 1.6 X10'3 (1.1-4.8); LYMPHOCYTES % (AUTO) 25.5 % (21-51); MEAN CORPUSCULAR HEMOGLOBIN 30.3 PG (27.0-31.0); MEAN CORPUSCULAR HGB CONC 33.5 g/dL (33.0-36.5); MEAN CORPUSCULAR VOLUME 90.4 FL (78-98); MEAN PLATELET VOLUME 8.4 FL (7.4-10.4); MONOCYTES # (AUTO) 0.6 X10'3 (0-0.9); MONOCYTES % (AUTO) 9.5 % (2-12); NEUTROPHILS # (AUTO) 3.7 X10'3 (1.8-7.7); PLATELET COUNT 139 X10'3 (140-440); RED BLOOD COUNT 3.91 X10'6 (4.70-6.10); RED CELL DISTRIBUTION WIDTH 13.9 % (11.5-14.5); WHITE BLOOD COUNT 6.4 X10'3 (4.5-11.0)
[2018-08-20 06:06] LABS: ALANINE AMINOTRANSFERASE 26 U/L (12-78); ALBUMIN 2.7 G/DL (3.4-5.0); ALBUMIN/GLOBULIN RATIO 0.8 (1.1-1.5); ALKALINE PHOSPHATASE 66 IU/L (46-116); ANION GAP 7 (8-16); ASPARTATE AMINO TRANSFERASE 18 U/L (10-37); BILIRUBIN,TOTAL 0.2 MG/DL (0.1-1.0); BLOOD UREA NITROGEN 20 MG/DL (7-18); CALCIUM 8.8 MG/DL (8.5-10.1); CHLORIDE 110 MMOL/L (99-107); CREATININE 1.11 MG/DL (0.60-1.10); GLUCOSE 93 MG/DL (70-104); MAGNESIUM 1.3 MG/DL (1.5-2.4); POTASSIUM 4.6 MMOL/L (3.5-5.1); SODIUM 142 MMOL/L (135-145); eGFR 66 ML/MIN
[2018-08-20 06:12] LABS: INR 1.5 INR; PROTHROMBIN TIME 15.2 SECONDS (9.0-12.0)
--- NOTE | 2018-08-20 06:39 | NUR ---
Problems reprioritized. Patient report given, questions answered & plan of care reviewed with KATRIN Sandoval.
[2018-08-20] MEDS: tamsulosin 0.4mg capsule PO SCH (08:00)
[2018-08-20] MEDS: Dakins solution (1/4 strength) 473ml solution TP SCH ×2 (08:00→20:00)
[2018-08-20] MEDS: multivitamins, therapeutics tablet PO SCH (08:00)
[2018-08-20] MEDS: metoprolol succinate 25mg (24-HOUR) SR. Tablet PO SCH (08:00)
[2018-08-20] MEDS: cyanocobalamin 500mcg tablet PO SCH ×2 (08:00→22:35)
[2018-08-20] MEDS: vitamin D (cholecalciferol) 1,000 unit tablet PO SCH ×2 (08:00→22:35)
[2018-08-20] MEDS: metFORMIN 500mg tablet PO SCH ×2 (08:00→22:58)
[2018-08-20] MEDS: heparin, porcine 5000 units/ml vial SQ SCH ×2 (08:00→22:38)
[2018-08-20] MEDS: digoxin 125mcg (0.125mg) tablet PO SCH (08:00)
[2018-08-20] MEDS: amLODIPine 5mg tablet PO SCH (08:00)
--- NOTE | 2018-08-20 08:40 | NUR ---
Dr Mark would like meds held for this patient this AM for surgery, including amlodipine, metropolol, and digoxin due to risk of decreased heart rate.
[2018-08-20] MEDS: K and/or MAG REPLACEMENT MC SCH (08:42)
[2018-08-20] MEDS: magnesium Cl slow-release 64mg tablet PO PRN ×2 (08:46→22:41)
[2018-08-20] MEDS: vancomycin/NS 1 GM ADD-VANTAGE 250 ML IV SCH ×2 (11:38→23:00)
[2018-08-20] MEDS ORDERED: BUPIVAcaine/PF 2.5mg/ml (0.25%) 10ml vial ONE ×2 (14:22→16:19)
--- NOTE | 2018-08-20 16:00 | NUR ---
Pt being picked up for surgery. Blood sugar stable. New IV. Report called to recovery and update to OR, i have made them both aware of high bp 178/67 prior to leaving floor and that HR is currently 61 but can drop into 40's/
[2018-08-20] MEDS ORDERED: ringers solution, lacted 1,000 ML IV SCH (17:17)
[2018-08-20] MEDS ORDERED: ondansetron/PF 4mg/2ml inj IV PRN (17:20)
[2018-08-20] MEDS ORDERED: meperidine/PF 25mg/ml syringe IV PRN ×3 (17:20)
[2018-08-20] MEDS ORDERED: morphine 4 MG/ML inj SYRINge IV PRN ×2 (17:20)
[2018-08-20] MEDS ORDERED: proCHLORperazine 10 MG/2 ml inj IV PRN (17:20)
[2018-08-20] MEDS ORDERED: midazolam 2 mg/2 ml injection ONE (17:23)
[2018-08-20] MEDS ORDERED: fentaNYL /PF 50mcg/ml 5ml ampule ONE (17:24)
--- NOTE | 2018-08-20 18:33 | NUR ---
Problems reprioritized. Patient report given, questions answered & plan of care reviewed with Carley WILKES.
[2018-08-20] MEDS ORDERED: propofol inj 20 ML IV ONE (18:40)
[2018-08-20] MEDS ORDERED: glycopyrrolate 0.2mg/ml inj ONE (18:40)
--- NOTE | 2018-08-20 18:45 | NUR ---
Received from OR via , accompanied by Anesthesiologist DR ARGUELLES and report given by Anesthesiolgist. AWAKENS TO VOICE. VITALS STABLE. DRESSINGS DI. DRU PAIN.
--- NOTE | 2018-08-20 19:35 | NUR ---
Report called to receiving nurse. Transferred via BED Belongings . Special Issues communicated to receiving nurse. AWAKE AND ORIENTED. VITALS STABLE. DRESSINGS DI. STATES PAIN IMPROVING. TO SURGICAL RM 356B AT THIS TIME.
--- NOTE | 2018-08-20 20:00 | NUR ---
Patient return from surgery accompanied by SO and daughter patricia. WV noted to left posterior calf @100mmhg continuous no drainage noted in canister. Dressing to right groin in place, CDI. No issues at this time. Current BP 142/73
[2018-08-20] MEDS ORDERED: warfarin 7.5mg tablet PO ONE (21:00)
--- NOTE | 2018-08-20 22:00 | NUR ---
PATIENT REFUSED TO LET NURSE RECHECK HIS BLOOD SUGAR. PATIENT BLOOD SUGAR DOWN IN RECOVERY WAS 79. PATIENT STATES THAT IS NORMAL, HE USUALLY RUNS AROUND 60-70'S, AND HE FEELS FINE. NURSE OFFER PATIENT JUICE AND JELL-O. PATIENT HAD TWO SERVINGS OF JELL-O. WILL CONTINUE TO MONITOR PATIENT.
--- NOTE | 2018-08-20 22:30 | NUR ---
Patient complaining of 10/10 pain-throbbing/aching to left posterior calf, where his wound vac is. [place] given. Patient stated he wants his morphine IV. Patient Morphine discontinued/fell off this evening at 1830. Dr. Wilson called and does not want to continue PRN Morphine IV. New order for one time dose of Morphine ER 15mg PO. Patient was not very happy. Explained to patient pain management plan for tonight. Nurse will stay on top of PRN [place] for pain management Q4Hr. Patient states understanding. Explain to patient Oncoming hospitalist in the morning can address pain medication.
[2018-08-20] MEDS: atorvastatin 10mg tablet PO SCH (22:35)
[2018-08-20] MEDS: insulin glargine (Lantus) pen - multi-dose SQ SCH (22:36)
[2018-08-20] MEDS: buPROPion SR 150mg tablet PO SCH (22:36)
[2018-08-20] MEDS: citalopram 20mg tablet PO SCH (22:37)
[2018-08-20] MEDS ORDERED: morphine ER 15mg tablet PO ONE (22:40)
[2018-08-21] VITALS: BP 149/64
--- NOTE | 2018-08-21 00:30 | NUR ---
PATIENT'S POST OPERATIVE VITALS ACCIDENTLY GOT ERASE FROM VITALS MACHINE. AIDE UNPLUGGED THE VITALS MACHINE FROM PATIENT'S ROOM AND CAME OUT TO CHART IT. WHEN ATTEMPTED TO TURN THE SCREEN ON NO VITALS WERE ON THE SCREEN. PATIENT'S VITALS HAS BEEN STABLE. NURSE HAS BEEN IN AND OUT OF PATIENT'S ROOM AND CHECKING ON HER VITALS ON THE SCREEN. FIRST SET ON ARRIVAL TO FLOOR @2000 BP-142/73 HR-51 RR-18 TEMP 97.6 98%2L N/C PAIN 8/10 LAST SET @0000 BP-98.3 HR-62 RR-16 TEMP-98 98%2l N/C PAIN 9/10
[2018-08-21] MEDS: HYDROcodone/acetaminophen 5mg/325mg tablet PO PRN ×4 (01:51→21:18)
[2018-08-21 04:00] VITALS: BP 134/48
[2018-08-21 05:53] LABS: INR 2.4 INR; PROTHROMBIN TIME 22.9 SECONDS (9.0-12.0)
--- NOTE | 2018-08-21 06:13 | NUR ---
Patient report given to Carri WILKES. Will assume patient care.
[2018-08-21] MEDS: K and/or MAG REPLACEMENT MC SCH (06:55)
[2018-08-21 07:00] VITALS: BP 142/80
--- NOTE | 2018-08-21 07:00 | NUR ---
Patient in room [facility] 356. I have received report from Lizette and had the opportunity to ask questions and assume patient care. Addendum: 08/21/18 at 1048 by Carri Thrasher RN Amended: Links added.
[2018-08-21] MEDS: amLODIPine 5mg tablet PO SCH (07:48)
[2018-08-21] MEDS: multivitamins, therapeutics tablet PO SCH (07:48)
[2018-08-21] MEDS: heparin, porcine 5000 units/ml vial SQ SCH ×2 (07:48→21:09)
[2018-08-21] MEDS: tamsulosin 0.4mg capsule PO SCH (07:48)
[2018-08-21] MEDS: metFORMIN 500mg tablet PO SCH ×2 (07:48→20:51)
[2018-08-21] MEDS: cyanocobalamin 500mcg tablet PO SCH ×2 (07:48→20:53)
[2018-08-21] MEDS: vitamin D (cholecalciferol) 1,000 unit tablet PO SCH ×2 (07:48→20:52)
[2018-08-21] MEDS: digoxin 125mcg (0.125mg) tablet PO SCH (07:58)
[2018-08-21] MEDS: metoprolol succinate 25mg (24-HOUR) SR. Tablet PO SCH (07:59)
[2018-08-21] MEDS ORDERED: morphine 4 MG/ML inj SYRINge IV PRN (10:55)
[2018-08-21] MEDS ORDERED: morphine 2 MG/ML inj. syringe IV PRN (10:55)
[2018-08-21] MEDS: vancomycin/NS 1 GM ADD-VANTAGE 250 ML IV SCH ×2 (11:08→23:16)
[2018-08-21 12:49] VITALS: BP 126/42
[2018-08-21] MEDS: normal saline 1000ml 1,000 ML IV SCH (13:38)
--- NOTE | 2018-08-21 14:42 | NUR ---
Initial: patient with fair appetite. He is s/p excision of right inguinal cyst and debridement of left leg wound. pt has increased protein needs r/t wound healing. Pt seen by KODY for written/verbal high protein ed; KODY contact information provided. Pt declined additional proteins and dislikes eggs; KODY d/w dietary. LB 08/19. Will continue to monitor. Recommend: 1. Continue carb controlled diet 2. monitor for ONS needs 3. Weight per rx Addendum: 08/21/18 at [address] Amended: Links added. Addendum: 08/21/18 at [address] Initial: patient with fair appetite. He is s/p excision of right inguinal cyst and debridement of left leg wound. pt has increased protein needs r/t wound healing. Pt seen by KODY for written/verbal high protein ed; RD contact information provided. Pt declined additional proteins and dislikes eggs; KODY d/w dietary. LBM 08/19. Will continue to monitor. Recommend: 1. Continue carb controlled diet 2. monitor for ONS needs 3. MVI for wounds 4. Weight per rx
[2018-08-21 16:18] VITALS: BP 133/47
--- NOTE | 2018-08-21 18:15 | NUR ---
Patient in room [facility] 356. I have received report from Carri WILKES and had the opportunity to ask questions and assume patient care. Patient on way to toilet with aide assistance, will return to introduce self. Will continue to monitor.
--- NOTE | 2018-08-21 18:19 | NUR ---
Problems reprioritized. Patient report given, questions answered & plan of care reviewed with Addendum: 08/21/18 at 1820 by Carri Thrasher RN Amended: Links added.
[2018-08-21 20:00] VITALS: BP 130/49
[2018-08-21] MEDS: citalopram 20mg tablet PO SCH (20:51)
[2018-08-21] MEDS: buPROPion SR 150mg tablet PO SCH (20:52)
[2018-08-21] MEDS: atorvastatin 10mg tablet PO SCH (20:52)
[2018-08-21] MEDS: magnesium Cl slow-release 64mg tablet PO PRN (20:54)
[2018-08-21] MEDS: insulin glargine (Lantus) pen - multi-dose SQ SCH (21:00)
--- NOTE | 2018-08-21 21:10 | NUR ---
Patient's Coumadin held due to fast jump of INR from 1.5-2.4. Patient is also due for heparin, PT also jumped from 15-22.9. Discussed with Dr. Wilson who states to hold heparin dose tonight due to therapeutic INR. Will continue to monitor.
[2018-08-21] MEDS ORDERED: VANCOMYCIN LEVEL IV ONE (22:30)
--- NOTE | 2018-08-21 23:41 | NUR ---
Patient's Vanco trough returned critical result of 20.2. Notified pharmacist Stanford who states to hold dose based on protocol of holding any dose over 20.0. Stopped dose, patient received 40 ml of Vanco since start of administration. Will continue to monitor.
[2018-08-22] VITALS: BP 140/69
[2018-08-22] MEDS: normal saline 1000ml 1,000 ML IV SCH (01:45)
[2018-08-22 05:11] LABS: BASOPHILS % (AUTO) 0.3 % (0-1); EOSINOPHILS # (AUTO) 0.3 X10'3 (0-0.9); EOSINOPHILS % (AUTO) 3.9 % (0-6); HEMOGLOBIN 11.9 g/dl (14.0-17.9); LYMPHOCYTES # (AUTO) 1.1 X10'3 (1.1-4.8); LYMPHOCYTES % (AUTO) 13.6 % (21-51); MEAN CORPUSCULAR VOLUME 90.7 FL (78-98); MEAN PLATELET VOLUME 8.6 FL (7.4-10.4); MONOCYTES # (AUTO) 0.8 X10'3 (0-0.9); MONOCYTES % (AUTO) 9.9 % (2-12); NEUTROPHILS % (AUTO) 72.3 % (42-75); PLATELET COUNT 132 X10'3 (140-440); RED BLOOD COUNT 3.97 X10'6 (4.70-6.10); RED CELL DISTRIBUTION WIDTH 13.9 % (11.5-14.5); WHITE BLOOD COUNT 8.4 X10'3 (4.5-11.0)
[2018-08-22 05:21] LABS: INR 2.7 INR; PROTHROMBIN TIME 25.9 SECONDS (9.0-12.0)
[2018-08-22 05:25] LABS: ALANINE AMINOTRANSFERASE 34 U/L (12-78); ALBUMIN 2.8 G/DL (3.4-5.0); ALBUMIN/GLOBULIN RATIO 0.8 (1.1-1.5); ALKALINE PHOSPHATASE 62 IU/L (46-116); ANION GAP 7 (8-16); ASPARTATE AMINO TRANSFERASE 26 U/L (10-37); BILIRUBIN,TOTAL 0.3 MG/DL (0.1-1.0); BLOOD UREA NITROGEN 19 MG/DL (7-18); BUN/CREATININE RATIO 15.1 (5.4-32.0); CALCIUM 8.7 MG/DL (8.5-10.1); CHLORIDE 109 MMOL/L (99-107); CREATININE 1.26 MG/DL (0.60-1.10); GLUCOSE 106 MG/DL (70-104); MAGNESIUM 1.2 MG/DL (1.5-2.4); POTASSIUM 4.8 MMOL/L (3.5-5.1); SODIUM 142 MMOL/L (135-145); TOTAL CARBON DIOXIDE 25.7 MMOL/L (24-32); TOTAL PROTEIN 6.2 G/DL (6.4-8.2); eGFR 57 ML/MIN
--- NOTE | 2018-08-22 06:40 | NUR ---
Problems reprioritized. Patient report given, questions answered & plan of care reviewed with Carri RN. Patient resting eyes closed respirations even.
[2018-08-22] MEDS: K and/or MAG REPLACEMENT MC SCH (08:00)
[2018-08-22 08:16] VITALS: BP 164/63
[2018-08-22] MEDS: multivitamins, therapeutics tablet PO SCH (09:16)
[2018-08-22] MEDS: tamsulosin 0.4mg capsule PO SCH (09:16)
[2018-08-22] MEDS: metFORMIN 500mg tablet PO SCH ×2 (09:16→19:03)
[2018-08-22] MEDS: metoprolol succinate 25mg (24-HOUR) SR. Tablet PO SCH (09:17)
[2018-08-22] MEDS: vitamin D (cholecalciferol) 1,000 unit tablet PO SCH ×2 (09:17→19:02)
[2018-08-22] MEDS: cyanocobalamin 500mcg tablet PO SCH ×2 (09:17→19:03)
[2018-08-22] MEDS: amLODIPine 5mg tablet PO SCH (09:18)
[2018-08-22] MEDS: heparin, porcine 5000 units/ml vial SQ SCH (09:19)
--- NOTE | 2018-08-22 10:29 | NUR ---
Student Medication Administration: For this medication-pass time frame, all medication were reviewed, dispensed, administered and documented per hospital policy by Arvind MYRICK [facility] [place].
[2018-08-22 12:00] VITALS: BP 127/64
[2018-08-22 12:44] VITALS: BP 151/64
[2018-08-22] MEDS: HYDROcodone/acetaminophen 5mg/325mg tablet PO PRN (15:15)
--- NOTE | 2018-08-22 17:57 | NUR ---
WOUND VAC EDUCATION PROVIDED BY WOUND CARE 1. Patient instructed to call the Wound Center or their Home Health Agency immediately if: * They notice a change in the color or amount of the fluid in the canister. * Their wound looks more red than usual or has a foul smell. * The skin around their wound looks reddened or irritated. * The dressing feels loose or appears to be loose. * They experience any increase or changes in their pain. * The alarm will not turn off. 2. Patient instructed that they should not be disconnected from suction for more than 2 hours at a time. * If they are not able to get the suction back on, they need to remove the dressing and take all of the foam out of the wound. * Then moisten sterile gauze with normal saline and place on/in the wound. * Change the dressing once a day until arrangements have been made to replace the wound vac dressing. 3. Patient instructed to turn the wound vac machine OFF and call 911 or go to the ED immediately if their canister fills rapidly with blood. 4. If any of these occur while in the hospital tell a nurse immediately. Addendum: 08/22/18 at 1844 by Breanna Tan RN Amended: Links added.
[2018-08-22 18:00] VITALS: BP 140/62
--- NOTE | 2018-08-22 18:22 | NUR ---
RECOMMEND: 1. Daily bathing with no rinse skin cleanser. 2. Cream/Lotion to be applied to skin after bathing. 3. Encourage patient to turn Q 1-2 hrs and reposition with pillows. 4. Wound VAC to left calf wound with routine dressing changes by Wound Care. Settings 100mmHg, low, cont. 5. Nursing to change groin dressing per Dr Mark's instructions Addendum: 08/22/18 at 1844 by Breanna Tan RN Amended: Links added.
--- NOTE | 2018-08-22 18:27 | NUR ---
Problems reprioritized. Patient report given, questions answered & plan of care reviewed with Nahid. Addendum: 08/22/18 at 1828 by Carri Thrasher RN Amended: Links added.
--- NOTE | 2018-08-22 18:30 | NUR ---
Patient in room [facility] 355. I have received report from Carri WILKES and had the opportunity to ask questions and assume patient care.
[2018-08-22] MEDS: linezolid 600mg tablet PO SCH (19:03)
[2018-08-22] MEDS: lactobacillus rhamnosus 10,000 MMU CELLS/CAPSULE PO SCH (19:03)
[2018-08-22] MEDS: atorvastatin 10mg tablet PO SCH (20:55)
[2018-08-22] MEDS: citalopram 20mg tablet PO SCH (20:55)
[2018-08-22] MEDS: buPROPion SR 150mg tablet PO SCH (20:55)
[2018-08-22 23:52] VITALS: BP 141/55
[2018-08-23 05:53] LABS: BASOPHILS % (AUTO) 0.2 % (0-1); EOSINOPHILS # (AUTO) 0.3 X10'3 (0-0.9); EOSINOPHILS % (AUTO) 3.1 % (0-6); HEMOGLOBIN 11.6 g/dl (14.0-17.9); LYMPHOCYTES # (AUTO) 1.1 X10'3 (1.1-4.8); LYMPHOCYTES % (AUTO) 13.5 % (21-51); MEAN CORPUSCULAR HEMOGLOBIN 30.1 PG (27.0-31.0); MEAN CORPUSCULAR HGB CONC 33.2 g/dL (33.0-36.5); MEAN CORPUSCULAR VOLUME 90.5 FL (78-98); MONOCYTES # (AUTO) 0.8 X10'3 (0-0.9); NEUTROPHILS # (AUTO) 6.2 X10'3 (1.8-7.7); NEUTROPHILS % (AUTO) 74.2 % (42-75); PLATELET COUNT 144 X10'3 (140-440); RED BLOOD COUNT 3.87 X10'6 (4.70-6.10); RED CELL DISTRIBUTION WIDTH 13.9 % (11.5-14.5); WHITE BLOOD COUNT 8.4 X10'3 (4.5-11.0)
[2018-08-23 05:57] LABS: ALANINE AMINOTRANSFERASE 36 U/L (12-78); ALBUMIN 2.6 G/DL (3.4-5.0); ALBUMIN/GLOBULIN RATIO 0.8 (1.1-1.5); ALKALINE PHOSPHATASE 58 IU/L (46-116); ANION GAP 10 (8-16); ASPARTATE AMINO TRANSFERASE 22 U/L (10-37); BILIRUBIN,TOTAL 0.5 MG/DL (0.1-1.0); BLOOD UREA NITROGEN 21 MG/DL (7-18); BUN/CREATININE RATIO 16.5 (5.4-32.0); CALCIUM 8.9 MG/DL (8.5-10.1); CHLORIDE 108 MMOL/L (99-107); CREATININE 1.27 MG/DL (0.60-1.10); GLUCOSE 113 MG/DL (70-104); POTASSIUM 4.5 MMOL/L (3.5-5.1); SODIUM 142 MMOL/L (135-145); TOTAL CARBON DIOXIDE 24.3 MMOL/L (24-32); eGFR 56 ML/MIN
[2018-08-23 06:12] LABS: PROTHROMBIN TIME 19.2 SECONDS (9.0-12.0)
--- NOTE | 2018-08-23 06:31 | NUR ---
Patient in room [facility] 355. I have received report from KATRIN Whitfield and had the opportunity to ask questions and assume patient care.
--- NOTE | 2018-08-23 06:31 | NUR ---
Problems reprioritized. Patient report given, questions answered & plan of care reviewed with Chloe WILKES.
[2018-08-23 07:16] VITALS: BP 111/57
[2018-08-23] MEDS: K and/or MAG REPLACEMENT MC SCH (08:00)
[2018-08-23] MEDS: linezolid 600mg tablet PO SCH (08:43)
[2018-08-23] MEDS: metFORMIN 500mg tablet PO SCH (08:44)
[2018-08-23] MEDS: cyanocobalamin 500mcg tablet PO SCH (08:44)
[2018-08-23] MEDS: tamsulosin 0.4mg capsule PO SCH (08:44)
[2018-08-23] MEDS: lactobacillus rhamnosus 10,000 MMU CELLS/CAPSULE PO SCH (08:44)
[2018-08-23] MEDS: multivitamins, therapeutics tablet PO SCH (08:44)
[2018-08-23] MEDS: amLODIPine 5mg tablet PO SCH (08:44)
[2018-08-23] MEDS: metoprolol succinate 25mg (24-HOUR) SR. Tablet PO SCH (08:44)
[2018-08-23] MEDS: vitamin D (cholecalciferol) 1,000 unit tablet PO SCH (08:44)
[2018-08-23] MEDS: HYDROcodone/acetaminophen 5mg/325mg tablet PO PRN (11:04)
[2018-08-23 11:32] VITALS: BP 107/62
[2018-08-23] MEDS ORDERED: METO-395 PO (12:49)
[2018-08-23] MEDS ORDERED: HYDR-3972 PO (12:49)
[2018-08-23] MEDS ORDERED: LINE600T36 PO (12:49)
--- NOTE | 2018-08-23 14:31 | NUR ---
Wound vac to left lower extremity. Unable to take discharge wound photograph. Addendum: 08/23/18 at 1432 by Chloe Adkins RN Amended: Links added.
--- NOTE | 2018-08-23 18:03 | NUR ---
Pt discharged to home with all belongings, in private vehicle, accompanied by family. Discharge instructions and medications reviewed. New prescriptions delivered by [facility]. IV DC'd, cannula intact. Home wound vac provided as well as education regarding use and care. Pt set up with home health services and instructions to follow up with Dr Mark. Pt escorted to front lobby via wheelchair by PCT.
[2018-08-23] MEDS ORDERED: warfarin 3mg tablet PO ONE (21:00)
== END 2018-08-23 16:20 | disposition home health service (06) | DRG 571 ==
LOC: ER 13:42 → ED HOLD 18:24 → SUR 3N 23:59
PROVIDERS: ADMIT Internal Medicine; ATTEND Internal Medicine
PROC: 0KBT0ZZ Excision of Left Lower Leg Muscle, Open Approach (ICD-10-PCS; 2018-08-20)
PROC: 0JBC0ZZ Excision of Pelvic Region Subcutaneous Tissue and Fascia, Open Approach (ICD-10-PCS; principal; 2018-08-20 17:14)
DX: S80.922A Unspecified superficial injury of left lower leg, initial encounter (principal); L03.116 Cellulitis of left lower limb; L97.228 Non-pressure chronic ulcer of left calf with other specified severity; R19.09 Other intra-abdominal and pelvic swelling, mass and lump; N18.3 Chronic kidney disease, stage 3 (moderate); E78.5 Hyperlipidemia, unspecified; I70.209 Unspecified atherosclerosis of native arteries of extremities, unspecified extremity; R19.7 Diarrhea, unspecified; E11.22 Type 2 diabetes mellitus with diabetic chronic kidney disease; E11.51 Type 2 diabetes mellitus with diabetic peripheral angiopathy without gangrene; F32.9 Major depressive disorder, single episode, unspecified; R00.1 Bradycardia, unspecified; B95.7 Other staphylococcus as the cause of diseases classified elsewhere; R79.89 Other specified abnormal findings of blood chemistry; Z96.651 Presence of right artificial knee joint; B95.2 Enterococcus as the cause of diseases classified elsewhere; W57.XXXA Bitten or stung by nonvenomous insect and other nonvenomous arthropods, initial encounter; I12.9 Hypertensive chronic kidney disease with stage 1 through stage 4 chronic kidney disease, or unspecified chronic kidney disease; I25.10 Atherosclerotic heart disease of native coronary artery without angina pectoris; I48.0 Paroxysmal atrial fibrillation; E11.622 Type 2 diabetes mellitus with other skin ulcer; Z79.84 Long term (current) use of oral hypoglycemic drugs; Z95.1 Presence of aortocoronary bypass graft; Z79.899 Other long term (current) drug therapy; Y93.89 Activity, other specified; Y92.89 Other specified places as the place of occurrence of the external cause; Y99.8 Other external cause status
CPT/HCPCS: 36415; 73720; 76705; 80053; 80202; 82948; 83036; 83605; 83735; 84145; 85025; 85610; 85651; 86140; 87040; 87070; 93005; 97116; 97161; 97530; 99285; A6449; A7000; A9579; G0378; J1644; J1815; J2175; J2250; J2270; J2543; J2704; J3010; J3370; J3475; J3490; J7030; J7120

== ENCOUNTER 2018-08-26 10:41 | Outpatient (CLI) | payer MEDICARE, OTHER ==
[~2018-08-26 10:41] MED LIST changes: +BUPR150T6 PO; -BUPR150T8 PO; +FLO0.4C PO; +GLIP10TA11 PO; -GLYB5TAB7 PO; +HYDR-3972 PO; +LINE600T36 PO; -METF500T7 PO; -TAMS0.4C32 PO; +WARF-55 PO
--- NOTE | 2018-08-26 13:30 | NUR ---
Patient arrived via wheelchair accompanied by caregiver from [facility] and was admitted to outpatient wound care for physician visit with Forrest Mark MD. Dressing removed, wound cleansed. Patient assessed for changes in conditions, medications and medical history. 1124 - blood glucose 153. Patient instructed that elevated blood sugars delay healing of the wound and can cause further complications including but not limited to amputation of toes or feet. 1205 - Dr. Mark at bedside accompanied by RN. Wound assessed by MD; orders written. Plan of care discussed with patient. Dressings placed per MD orders. Pt instructed that they should not be disconnected from suction for more than 2 hours at a time. If they are not able to get the suction back on they need to remove the dressing and take all of the foam out of the wound, place hydrogel gauze on/in the wound, and change the dressing daily until someone can replace the dressing. Pt instructed to call the Wound Center or their Home Health Agency immediately if they notice a change in the color or amount of the fluid in the canister, their wound looks more red than usual or has a foul smell, the skin around their wound looks reddened or irritated, the dressing feels or appears loose, they experience pain or the alarm will not turn off. Pt instructed to call 911 or go to the ED if their canister fills rapidly with blood. Patient instructed on the signs and symptoms of infection and to call the Wound Center if any occur or to go to the ED if we are closed: Increased pain in wound Increase in drainage from the wound Redness in the skin surrounding the wound Bleeding from the wound Temperature of 101 or greater Patient instructed that the weight of their body puts a large amount of pressure on their wounds. This pressure keeps the new tissue from growing and inhibits new blood vessels from forming. Explained that, if they continue to bear weight on a body part that has a wound, the time it takes to heal the wound increases, the wound may get worse or the wound may not heal at all. Patient verbalized understanding of all discharge instructions and plan of care and exited via wheelchair accompanied by caregiver out to [facility] in stable condition with no sign or symptom of distress at time of discharge.
== END 2018-08-26 13:05 | disposition home or self-care (01) ==
LOC: WOUND CARE 10:41 → EDSTATUS 11:00 → WOUND CARE 13:05
PROVIDERS: ATTEND Surgery
DX: T81.89XD Other complications of procedures, not elsewhere classified, subsequent encounter (principal); E11.622 Type 2 diabetes mellitus with other skin ulcer; L97.222 Non-pressure chronic ulcer of left calf with fat layer exposed; L97.322 Non-pressure chronic ulcer of left ankle with fat layer exposed; I12.9 Hypertensive chronic kidney disease with stage 1 through stage 4 chronic kidney disease, or unspecified chronic kidney disease; N18.3 Chronic kidney disease, stage 3 (moderate); E11.65 Type 2 diabetes mellitus with hyperglycemia; E78.5 Hyperlipidemia, unspecified; E66.9 Obesity, unspecified; I25.2 Old myocardial infarction; I25.10 Atherosclerotic heart disease of native coronary artery without angina pectoris; M17.11 Unilateral primary osteoarthritis, right knee; F41.8 Other specified anxiety disorders; F32.9 Major depressive disorder, single episode, unspecified; Z95.1 Presence of aortocoronary bypass graft; Z79.1 Long term (current) use of non-steroidal anti-inflammatories (NSAID); Z68.34 Body mass index [BMI] 34.0-34.9, adult; Z96.698 Presence of other orthopedic joint implants; Y83.8 Other surgical procedures as the cause of abnormal reaction of the patient, or of later complication, without mention of misadventure at the time of the procedure
CPT/HCPCS: 36416; 82948; 97605; A4456; A6206

== ENCOUNTER 2018-09-02 09:17 | Day surgery (SDC) | payer MEDICARE, OTHER ==
--- NOTE | 2018-09-02 11:30 | NUR ---
Patient arrived from [facility] and was admitted to outpatient wound care for physician visit with Forrest Mark MD. Dressing removed, wound cleansed and lidocaine cream applied per order. Patient assessed for changes in conditions, medications and medical history. 0959 - blood glucose 121. Patient instructed that elevated blood sugars delay healing of the wound and can cause further complications including but not limited to amputation of toes or feet. 1030 - Dr. Mark at bedside accompanied by RN. Wound assessed, time out performed by MD/RN. Wound debrided as detailed in the physician progress/procedure note. Plan of care discussed with patient. Dressings placed per MD orders. Pt instructed that they should not be disconnected from suction for more than 2 hours at a time. If they are not able to get the suction back on they need to remove the dressing and take all of the foam out of the wound, place hydrogel gauze on/in the wound, and change the dressing daily until someone can replace the dressing. Pt instructed to call the Wound Center or their Home Health Agency immediately if they notice a change in the color or amount of the fluid in the canister, their wound looks more red than usual or has a foul smell, the skin around their wound looks reddened or irritated, the dressing feels or appears loose, they experience pain or the alarm will not turn off. Pt instructed to call 911 or go to the ED if their canister fills rapidly with blood. Patient instructed on the signs and symptoms of infection and to call the Wound Center if any occur or to go to the ED if we are closed: Increased pain in wound Increase in drainage from the wound Redness in the skin surrounding the wound Bleeding from the wound Temperature of 101 or greater Patient instructed that the weight of their body puts a large amount of pressure on their wounds. This pressure keeps the new tissue from growing and inhibits new blood vessels from forming. Explained that, if they continue to bear weight on a body part that has a wound, the time it takes to heal the wound increases, the wound may get worse or the wound may not heal at all. Patient verbalized understanding of all discharge instructions and plan of care and exited out to [facility] in stable condition with no sign or symptom of distress at time of discharge.
== END 2018-09-02 11:10 | disposition home or self-care (01) ==
LOC: WOUND CARE 09:17
PROVIDERS: ATTEND Surgery
DX: T81.89XD Other complications of procedures, not elsewhere classified, subsequent encounter (principal); E11.622 Type 2 diabetes mellitus with other skin ulcer; I83.022 Varicose veins of left lower extremity with ulcer of calf; L97.222 Non-pressure chronic ulcer of left calf with fat layer exposed; L97.322 Non-pressure chronic ulcer of left ankle with fat layer exposed; I12.9 Hypertensive chronic kidney disease with stage 1 through stage 4 chronic kidney disease, or unspecified chronic kidney disease; N18.3 Chronic kidney disease, stage 3 (moderate); E11.65 Type 2 diabetes mellitus with hyperglycemia; E78.5 Hyperlipidemia, unspecified; E66.9 Obesity, unspecified; I25.2 Old myocardial infarction; I25.10 Atherosclerotic heart disease of native coronary artery without angina pectoris; M17.11 Unilateral primary osteoarthritis, right knee; F41.8 Other specified anxiety disorders; F32.9 Major depressive disorder, single episode, unspecified; Z95.1 Presence of aortocoronary bypass graft; Z79.1 Long term (current) use of non-steroidal anti-inflammatories (NSAID); Z68.34 Body mass index [BMI] 34.0-34.9, adult; Z96.698 Presence of other orthopedic joint implants; Y83.8 Other surgical procedures as the cause of abnormal reaction of the patient, or of later complication, without mention of misadventure at the time of the procedure
CPT/HCPCS: 36416; 82948; 97597; 97598; A6222; A4456

== ENCOUNTER 2018-09-09 09:25 | Day surgery (SDC) | payer MEDICARE, OTHER ==
[2018-09-09] MEDS ORDERED: LIDOcaine/PRILOcaine 5gm cream TP ONE (10:01)
--- NOTE | 2018-09-09 11:15 | NUR ---
Patient ambulated independently from [facility] and was admitted to outpatient wound care for physician visit with Forrest Mark MD. Dressing removed, wound cleansed and Emla cream applied per order. Patient assessed for changes in conditions, medications and medical history. 1017 - blood glucose 195. Patient instructed that elevated blood sugars delay healing of the wound and can cause further complications including but not limited to amputation of toes or feet. 1020 - Dr. Mark at bedside accompanied by RN. Wound assessed, time out performed by MD/RN. Wound debrided as detailed in the physician progress/procedure note. Plan of care discussed with patient. Dressings placed per MD orders. Pt instructed that they should not be disconnected from suction for more than 2 hours at a time. If they are not able to get the suction back on they need to remove the dressing and take all of the foam out of the wound, place hydrogel gauze on/in the wound, and change the dressing daily until someone can replace the dressing. Pt instructed to call the Wound Center or their Home Health Agency immediately if they notice a change in the color or amount of the fluid in the canister, their wound looks more red than usual or has a foul smell, the skin around their wound looks reddened or irritated, the dressing feels or appears loose, they experience pain or the alarm will not turn off. Pt instructed to call 911 or go to the ED if their canister fills rapidly with blood. Patient instructed on the signs and symptoms of infection and to call the Wound Center if any occur or to go to the ED if we are closed: Increased pain in wound Increase in drainage from the wound Redness in the skin surrounding the wound Bleeding from the wound Temperature of 101 or greater Patient instructed that the weight of their body puts a large amount of pressure on their wounds. This pressure keeps the new tissue from growing and inhibits new blood vessels from forming. Explained that, if they continue to bear weight on a body part that has a wound, the time it takes to heal the wound increases, the wound may get worse or the wound may not heal at all. Patient verbalized understanding of all discharge instructions and plan of care and ambulated independently out to [facility] in stable condition with no sign or symptom of distress at time of discharge.
== END 2018-09-09 10:54 | disposition home or self-care (01) ==
LOC: WOUND CARE 09:25
PROVIDERS: ATTEND Surgery
DX: T81.89XD Other complications of procedures, not elsewhere classified, subsequent encounter (principal); E11.622 Type 2 diabetes mellitus with other skin ulcer; I83.022 Varicose veins of left lower extremity with ulcer of calf; L97.222 Non-pressure chronic ulcer of left calf with fat layer exposed; L97.322 Non-pressure chronic ulcer of left ankle with fat layer exposed; I12.9 Hypertensive chronic kidney disease with stage 1 through stage 4 chronic kidney disease, or unspecified chronic kidney disease; N18.3 Chronic kidney disease, stage 3 (moderate); E11.65 Type 2 diabetes mellitus with hyperglycemia; E78.5 Hyperlipidemia, unspecified; E66.9 Obesity, unspecified; I25.2 Old myocardial infarction; I25.10 Atherosclerotic heart disease of native coronary artery without angina pectoris; M17.11 Unilateral primary osteoarthritis, right knee; F41.8 Other specified anxiety disorders; F32.9 Major depressive disorder, single episode, unspecified; Z95.1 Presence of aortocoronary bypass graft; Z79.1 Long term (current) use of non-steroidal anti-inflammatories (NSAID); Z68.34 Body mass index [BMI] 34.0-34.9, adult; Z96.698 Presence of other orthopedic joint implants; Y83.8 Other surgical procedures as the cause of abnormal reaction of the patient, or of later complication, without mention of misadventure at the time of the procedure
CPT/HCPCS: 11043; 11046; 36416; 82948; 87070; 87075; 87077; 87102; 87176; 87186; 97605; A6222; A4456

== ENCOUNTER 2018-09-16 09:24 | Day surgery (SDC) | payer MEDICARE, OTHER ==
--- NOTE | 2018-09-16 11:18 | NUR ---
Patient ambulated independently from [facility] and was admitted to outpatient wound care for physician visit with Forrest Mark MD. Dressing removed, wound cleansed and lidocaine applied per order. Patient assessed for changes in conditions, medications and medical history. 1016 - blood glucose 136. Patient instructed that elevated blood sugars delay healing of the wound and can cause further complications including but not limited to amputation of toes or feet. 1025 - Dr. Mark at bedside accompanied by RN. Wound assessed, time out performed by MD/RN. Wound debrided as detailed in the physician progress/procedure note. Plan of care discussed with patient. Dressings placed per MD orders. Pt instructed that they should not be disconnected from suction for more than 2 hours at a time. If they are not able to get the suction back on they need to remove the dressing and take all of the foam out of the wound, place hydrogel gauze on/in the wound, and change the dressing daily until someone can replace the dressing. Pt instructed to call the Wound Center or their Home Health Agency immediately if they notice a change in the color or amount of the fluid in the canister, their wound looks more red than usual or has a foul smell, the skin around their wound looks reddened or irritated, the dressing feels or appears loose, they experience pain or the alarm will not turn off. Pt instructed to call 911 or go to the ED if their canister fills rapidly with blood. Patient instructed on the signs and symptoms of infection and to call the Wound Center if any occur or to go to the ED if we are closed: Increased pain in wound Increase in drainage from the wound Redness in the skin surrounding the wound Bleeding from the wound Temperature of 101 or greater Patient instructed that the weight of their body puts a large amount of pressure on their wounds. This pressure keeps the new tissue from growing and inhibits new blood vessels from forming. Explained that, if they continue to bear weight on a body part that has a wound, the time it takes to heal the wound increases, the wound may get worse or the wound may not heal at all. Patient verbalized understanding of all discharge instructions and plan of care and ambulated independently out to [facility] in stable condition with no sign or symptom of distress at time of discharge.
[2018-09-16] MEDS ORDERED: CIPR-259 PO (15:25)
== END 2018-09-16 11:26 | disposition home or self-care (01) ==
LOC: WOUND CARE 09:24
PROVIDERS: ATTEND Surgery
DX: T81.89XD Other complications of procedures, not elsewhere classified, subsequent encounter (principal); E11.622 Type 2 diabetes mellitus with other skin ulcer; I83.022 Varicose veins of left lower extremity with ulcer of calf; L97.222 Non-pressure chronic ulcer of left calf with fat layer exposed; L97.322 Non-pressure chronic ulcer of left ankle with fat layer exposed; I12.9 Hypertensive chronic kidney disease with stage 1 through stage 4 chronic kidney disease, or unspecified chronic kidney disease; N18.3 Chronic kidney disease, stage 3 (moderate); E11.65 Type 2 diabetes mellitus with hyperglycemia; E78.5 Hyperlipidemia, unspecified; E66.9 Obesity, unspecified; I25.2 Old myocardial infarction; I25.10 Atherosclerotic heart disease of native coronary artery without angina pectoris; M17.11 Unilateral primary osteoarthritis, right knee; F41.8 Other specified anxiety disorders; F32.9 Major depressive disorder, single episode, unspecified; Z95.1 Presence of aortocoronary bypass graft; Z79.1 Long term (current) use of non-steroidal anti-inflammatories (NSAID); Z68.34 Body mass index [BMI] 34.0-34.9, adult; Z96.698 Presence of other orthopedic joint implants; Y83.8 Other surgical procedures as the cause of abnormal reaction of the patient, or of later complication, without mention of misadventure at the time of the procedure
CPT/HCPCS: 11046; 36416; 82948; 97605; A4414; A4456; A6206

== ENCOUNTER 2018-09-23 09:04 | Day surgery (SDC) | payer MEDICARE, OTHER ==
[~2018-09-23 09:04] MED LIST changes: +CIPR-259 PO; -LINE600T36 PO
--- NOTE | 2018-09-23 16:02 | NUR ---
0930 Patient ambulated safely into [facility]. Patient admitted to outpatient wound care clinic for follow-up visit with physician. Dressing removed, wound cleansed. Patient assessed for changes in conditions, medications and medical history. Patient showed no s/s of distress at time of assessment. 1045 at bedside accompanied by RN. Wounds assessed, time out performed and debridement and application of grafix done today as detailed in the physician progress/procedure note. Plan of care discussed with patient. NPWT Dressings placed per MD orders over the grafix. Pt instructed that they should not be disconnected from suction for more than 2 hours at a time. If they are not able to get the suction back on they need to remove the dressing and take all of the foam out of the wound, place hydrogel gauze on/in the wound, and change the dressing daily until someone can replace the dressing. Pt instructed to call the Wound Center or their Home Health Agency immediately if they notice a change in the color or amount of the fluid in the canister, their wound looks more red than usual or has a foul smell, the skin around their wound looks reddened or irritated, the dressing feels or appears loose, they experience pain or the alarm will not turn off. Pt instructed to call 911 or go to the ED if their canister fills rapidly with blood. Patient instructed on the signs and symptoms of infection and to call the Wound Center if any occur or to go to the ED if we are closed: Increased pain in wound Increase in drainage from the wound Redness in the skin surrounding the wound Bleeding from the wound Temperature of 101 or greater Patient instructed that the weight of their body puts a large amount of pressure on their wounds. This pressure keeps the new tissue from growing and inhibits new blood vessels from forming. Explained that, if they continue to bear weight on a body part that has a wound, the time it takes to heal the wound increases, the wound may get worse or the wound may not heal at all. Patient verbalized understanding of all discharge instructions and plan of care. Patient ambulated independently out to [facility] and is in stable condition with no sign or symptom of distress at time of discharge.
== END 2018-09-23 10:35 | disposition home or self-care (01) ==
LOC: WOUND CARE 09:04
PROVIDERS: ATTEND Surgery
DX: T81.89XD Other complications of procedures, not elsewhere classified, subsequent encounter (principal); E11.622 Type 2 diabetes mellitus with other skin ulcer; I83.022 Varicose veins of left lower extremity with ulcer of calf; L97.222 Non-pressure chronic ulcer of left calf with fat layer exposed; L97.322 Non-pressure chronic ulcer of left ankle with fat layer exposed; I12.9 Hypertensive chronic kidney disease with stage 1 through stage 4 chronic kidney disease, or unspecified chronic kidney disease; N18.3 Chronic kidney disease, stage 3 (moderate); E11.65 Type 2 diabetes mellitus with hyperglycemia; E78.5 Hyperlipidemia, unspecified; E66.9 Obesity, unspecified; I25.2 Old myocardial infarction; I25.10 Atherosclerotic heart disease of native coronary artery without angina pectoris; M17.11 Unilateral primary osteoarthritis, right knee; F41.8 Other specified anxiety disorders; F32.9 Major depressive disorder, single episode, unspecified; Z95.1 Presence of aortocoronary bypass graft; Z79.1 Long term (current) use of non-steroidal anti-inflammatories (NSAID); Z68.34 Body mass index [BMI] 34.0-34.9, adult; Z96.698 Presence of other orthopedic joint implants; Y83.8 Other surgical procedures as the cause of abnormal reaction of the patient, or of later complication, without mention of misadventure at the time of the procedure
CPT/HCPCS: 15271; 15272; 36416; 82948; A6222; Q4133; A6250

== ENCOUNTER 2018-09-30 09:12 | Day surgery (SDC) | payer MEDICARE, OTHER ==
[~2018-09-30 09:12] MED LIST changes: -HYDR-3972 PO
--- NOTE | 2018-09-30 12:00 | NUR ---
Patient ambulated independently from [facility] and was admitted to outpatient wound care for physician visit with Forrest Mark MD. Dressing removed, wound cleansed and lidocaine applied per order. Patient assessed for changes in conditions, medications and medical history. 1055 - Dr. Mark at bedside accompanied by RN. Wound assessed, time out performed by MD/RN. Wound debrided and procedure performed as detailed in the physician progress/procedure note. Plan of care discussed with patient. Dressings placed per MD orders. Pt instructed that they should not be disconnected from suction for more than 2 hours at a time. If they are not able to get the suction back on they need to remove the dressing and take all of the foam out of the wound, place hydrogel gauze on/in the wound, and change the dressing daily until someone can replace the dressing. Pt instructed to call the Wound Center or their Home Health Agency immediately if they notice a change in the color or amount of the fluid in the canister, their wound looks more red than usual or has a foul smell, the skin around their wound looks reddened or irritated, the dressing feels or appears loose, they experience pain or the alarm will not turn off. Pt instructed to call 911 or go to the ED if their canister fills rapidly with blood. Patient instructed on the signs and symptoms of infection and to call the Wound Center if any occur or to go to the ED if we are closed: Increased pain in wound Increase in drainage from the wound Redness in the skin surrounding the wound Bleeding from the wound Temperature of 101 or greater Patient instructed that the weight of their body puts a large amount of pressure on their wounds. This pressure keeps the new tissue from growing and inhibits new blood vessels from forming. Explained that, if they continue to bear weight on a body part that has a wound, the time it takes to heal the wound increases, the wound may get worse or the wound may not heal at all. Patient verbalized understanding of all discharge instructions and plan of care and ambulated independently out to [facility] in stable condition with no sign or symptom of distress at time of discharge.
--- NOTE | 2018-09-30 15:08 | NUR ---
Blood glucose not assessed today. Addendum: 09/30/18 at 1509 by Hetal Jorge RN Amended: Links added.
== END 2018-09-30 12:01 | disposition home or self-care (01) ==
LOC: WOUND CARE 09:12
PROVIDERS: ATTEND Surgery
DX: T81.89XD Other complications of procedures, not elsewhere classified, subsequent encounter (principal); E11.622 Type 2 diabetes mellitus with other skin ulcer; I83.022 Varicose veins of left lower extremity with ulcer of calf; L97.222 Non-pressure chronic ulcer of left calf with fat layer exposed; L97.322 Non-pressure chronic ulcer of left ankle with fat layer exposed; L97.822 Non-pressure chronic ulcer of other part of left lower leg with fat layer exposed; I12.9 Hypertensive chronic kidney disease with stage 1 through stage 4 chronic kidney disease, or unspecified chronic kidney disease; N18.3 Chronic kidney disease, stage 3 (moderate); E11.65 Type 2 diabetes mellitus with hyperglycemia; E78.5 Hyperlipidemia, unspecified; E66.9 Obesity, unspecified; I25.2 Old myocardial infarction; I25.10 Atherosclerotic heart disease of native coronary artery without angina pectoris; M17.11 Unilateral primary osteoarthritis, right knee; F41.8 Other specified anxiety disorders; F32.9 Major depressive disorder, single episode, unspecified; Z95.1 Presence of aortocoronary bypass graft; Z79.1 Long term (current) use of non-steroidal anti-inflammatories (NSAID); Z68.34 Body mass index [BMI] 34.0-34.9, adult; Z96.698 Presence of other orthopedic joint implants; Y83.8 Other surgical procedures as the cause of abnormal reaction of the patient, or of later complication, without mention of misadventure at the time of the procedure
CPT/HCPCS: 15271; 15272; A6222; Q4133; A4456

== ENCOUNTER 2018-10-07 09:25 | Day surgery (SDC) | payer MEDICARE, OTHER ==
--- NOTE | 2018-10-07 14:36 | NUR ---
Patient ambulated independently from [facility] and was admitted to outpatient wound care for physician visit with Forrest Mark MD. Dressing removed, wound cleansed and lidocaine applied per order. Patient assessed for changes in conditions, medications and medical history. Dr. Mark at bedside accompanied by RN. Wound assessed, time out performed by MD/RN. Wound debrided as detailed in the physician progress/procedure note. Plan of care discussed with patient. Dressings placed per MD orders. Patient instructed on the signs and symptoms of infection and to call the Wound Center if any occur or to go to the ED if we are closed: Increased pain in wound Increase in drainage from the wound Redness in the skin surrounding the wound Bleeding from the wound Temperature of 101 or greater Pt instructed that they should not be disconnected from suction for more than 2 hours at a time. If they are not able to get the suction back on they need to remove the dressing and take all of the foam out of the wound, place hydrogel gauze on/in the wound, and change the dressing daily until someone can replace the dressing. Pt instructed to call the Wound Center or their Home Health Agency immediately if they notice a change in the color or amount of the fluid in the canister, their wound looks more red than usual or has a foul smell, the skin around their wound looks reddened or irritated, the dressing feels or appears loose, they experience pain or the alarm will not turn off. Pt instructed to call 911 or go to the ED if their canister fills rapidly with blood. Patient instructed that the weight of their body puts a large amount of pressure on their wounds. This pressure keeps the new tissue from growing and inhibits new blood vessels from forming. Explained that, if they continue to bear weight on a body part that has a wound, the time it takes to heal the wound increases, the wound may get worse or the wound may not heal at all. Patient verbalized understanding of all discharge instructions and plan of care and ambulated independently out to [facility] in stable condition with no sign or symptom of distress at time of discharge. Addendum: 10/07/18 at 1437 by Bhargavi Cunningham RN Amended: Links added.
== END 2018-10-07 11:04 | disposition home or self-care (01) ==
LOC: WOUND CARE 09:25
PROVIDERS: ATTEND Surgery
DX: T81.89XD Other complications of procedures, not elsewhere classified, subsequent encounter (principal); E11.622 Type 2 diabetes mellitus with other skin ulcer; I83.022 Varicose veins of left lower extremity with ulcer of calf; L97.222 Non-pressure chronic ulcer of left calf with fat layer exposed; L97.322 Non-pressure chronic ulcer of left ankle with fat layer exposed; L97.822 Non-pressure chronic ulcer of other part of left lower leg with fat layer exposed; I12.9 Hypertensive chronic kidney disease with stage 1 through stage 4 chronic kidney disease, or unspecified chronic kidney disease; N18.3 Chronic kidney disease, stage 3 (moderate); E11.65 Type 2 diabetes mellitus with hyperglycemia; E78.5 Hyperlipidemia, unspecified; E66.9 Obesity, unspecified; I25.2 Old myocardial infarction; I25.10 Atherosclerotic heart disease of native coronary artery without angina pectoris; M17.11 Unilateral primary osteoarthritis, right knee; F41.8 Other specified anxiety disorders; F32.9 Major depressive disorder, single episode, unspecified; Z95.1 Presence of aortocoronary bypass graft; Z79.1 Long term (current) use of non-steroidal anti-inflammatories (NSAID); Z68.34 Body mass index [BMI] 34.0-34.9, adult; Z96.698 Presence of other orthopedic joint implants; Y83.8 Other surgical procedures as the cause of abnormal reaction of the patient, or of later complication, without mention of misadventure at the time of the procedure
CPT/HCPCS: 15271; 15272; A6222; Q4133

== ENCOUNTER 2018-10-14 09:17 | Day surgery (SDC) | payer MEDICARE, OTHER ==
--- NOTE | 2018-10-14 11:15 | NUR ---
Patient arrived from [facility] and was admitted to outpatient wound care for physician visit with Forrest Mark MD. Dressing removed, wound cleansed. Patient assessed for changes in conditions, medications and medical history. 1015 - Dr. Mark at bedside accompanied by RN. Wound assessed, time out performed by MD/RN. Wound debrided as detailed in the physician progress/procedure note. Plan of care discussed with patient. Dressings placed per MD orders. Pt instructed that they should not be disconnected from suction for more than 2 hours at a time. If they are not able to get the suction back on they need to remove the dressing and take all of the foam out of the wound, place hydrogel gauze on/in the wound, and change the dressing daily until someone can replace the dressing. Pt instructed to call the Wound Center or their Home Health Agency immediately if they notice a change in the color or amount of the fluid in the canister, their wound looks more red than usual or has a foul smell, the skin around their wound looks reddened or irritated, the dressing feels or appears loose, they experience pain or the alarm will not turn off. Pt instructed to call 911 or go to the ED if their canister fills rapidly with blood. Patient instructed on the signs and symptoms of infection and to call the Wound Center if any occur or to go to the ED if we are closed: Increased pain in wound Increase in drainage from the wound Redness in the skin surrounding the wound Bleeding from the wound Temperature of 101 or greater Patient instructed that the weight of their body puts a large amount of pressure on their wounds. This pressure keeps the new tissue from growing and inhibits new blood vessels from forming. Explained that, if they continue to bear weight on a body part that has a wound, the time it takes to heal the wound increases, the wound may get worse or the wound may not heal at all. Patient verbalized understanding of all discharge instructions and plan of care and exited out to [facility] in stable condition with no sign or symptom of distress at time of discharge.
== END 2018-10-14 11:07 | disposition home or self-care (01) ==
LOC: WOUND CARE 09:17
PROVIDERS: ATTEND Surgery
DX: T81.89XD Other complications of procedures, not elsewhere classified, subsequent encounter (principal); E11.622 Type 2 diabetes mellitus with other skin ulcer; I83.022 Varicose veins of left lower extremity with ulcer of calf; L97.222 Non-pressure chronic ulcer of left calf with fat layer exposed; L97.322 Non-pressure chronic ulcer of left ankle with fat layer exposed; L97.822 Non-pressure chronic ulcer of other part of left lower leg with fat layer exposed; E11.22 Type 2 diabetes mellitus with diabetic chronic kidney disease; I12.9 Hypertensive chronic kidney disease with stage 1 through stage 4 chronic kidney disease, or unspecified chronic kidney disease; N18.3 Chronic kidney disease, stage 3 (moderate); E11.65 Type 2 diabetes mellitus with hyperglycemia; E78.5 Hyperlipidemia, unspecified; E66.9 Obesity, unspecified; I25.2 Old myocardial infarction; I25.10 Atherosclerotic heart disease of native coronary artery without angina pectoris; M17.11 Unilateral primary osteoarthritis, right knee; F41.8 Other specified anxiety disorders; F32.9 Major depressive disorder, single episode, unspecified; Z95.1 Presence of aortocoronary bypass graft; Z79.1 Long term (current) use of non-steroidal anti-inflammatories (NSAID); Z68.34 Body mass index [BMI] 34.0-34.9, adult; Z96.698 Presence of other orthopedic joint implants; Y83.8 Other surgical procedures as the cause of abnormal reaction of the patient, or of later complication, without mention of misadventure at the time of the procedure
CPT/HCPCS: 97597; 97598; A6222; A4456; A6021

== ENCOUNTER 2018-10-22 09:20 | Day surgery (SDC) | payer MEDICARE, OTHER ==
[~2018-10-22 09:20] MED LIST changes: -CIPR-259 PO; -CYA500T PO; +CYAN500T63 PO
[2018-10-22] MEDS ORDERED: dextrose ORAL solution 15 GM/59 ML bottle ONE (10:12)
[2018-10-22] MEDS ORDERED: LIDOcaine/PRILOcaine 5gm cream TP ONE (10:32)
== END 2018-10-22 11:23 | disposition home or self-care (01) ==
LOC: WOUND CARE 09:20
PROVIDERS: ATTEND Surgery
DX: T81.89XD Other complications of procedures, not elsewhere classified, subsequent encounter (principal); E11.622 Type 2 diabetes mellitus with other skin ulcer; I83.022 Varicose veins of left lower extremity with ulcer of calf; L97.222 Non-pressure chronic ulcer of left calf with fat layer exposed; L97.822 Non-pressure chronic ulcer of other part of left lower leg with fat layer exposed; E11.22 Type 2 diabetes mellitus with diabetic chronic kidney disease; I12.9 Hypertensive chronic kidney disease with stage 1 through stage 4 chronic kidney disease, or unspecified chronic kidney disease; N18.3 Chronic kidney disease, stage 3 (moderate); E11.65 Type 2 diabetes mellitus with hyperglycemia; E78.5 Hyperlipidemia, unspecified; E66.9 Obesity, unspecified; I25.2 Old myocardial infarction; I25.10 Atherosclerotic heart disease of native coronary artery without angina pectoris; M17.11 Unilateral primary osteoarthritis, right knee; F41.8 Other specified anxiety disorders; F32.9 Major depressive disorder, single episode, unspecified; Z95.1 Presence of aortocoronary bypass graft; Z79.1 Long term (current) use of non-steroidal anti-inflammatories (NSAID); Z68.34 Body mass index [BMI] 34.0-34.9, adult; Z96.698 Presence of other orthopedic joint implants; Y83.8 Other surgical procedures as the cause of abnormal reaction of the patient, or of later complication, without mention of misadventure at the time of the procedure
CPT/HCPCS: 15271; 15272; 36416; 82948; A6222; Q4133

== ENCOUNTER 2018-10-28 09:30 | Day surgery (SDC) | payer MEDICARE, OTHER ==
[2018-10-28] MEDS: LIDOcaine/PRILOcaine 5gm cream TP ONE ×2 (10:26→10:31)
[2018-10-28] MEDS ORDERED: LIDOcaine 4% (40 mg/ml) topical solution 50ml ONE (10:27)
--- NOTE | 2018-10-28 16:42 | NUR ---
0930 [facility] Patient [facility] to [facility] wound care clinic for follow-up visit with physician. Dressing removed, wound cleansed. Patient assessed for changes in conditions, medications and medical history. Patient showed no s/s of distress at time of assessment. 1430 at bedside accompanied by RN. Wounds assessed, time out performed and debridement done today as detailed in the physician progress/procedure note. Apligraf applied by Physician. Plan of care discussed with patient. Dressings placed per MD orders. Patient instructed on the signs and symptoms of infection and to call the Wound Center if any occur or to go to the ED if we are closed: Increased pain in wound Increase in drainage from the wound Redness in the skin surrounding the wound Bleeding from the wound Temperature of 101 or greater Patient instructed that the weight of their body puts a large amount of pressure on their wounds. This pressure keeps the new tissue from growing and inhibits new blood vessels from forming. Explained that, if they continue to bear weight on a body part that has a wound, the time it takes to heal the wound increases, the wound may get worse or the wound may not heal at all. Patient verbalized understanding of all discharge instructions and plan of care. [facility] and is in stable condition with no sign or symptom of distress at time of discharge.
== END 2018-10-28 11:45 | disposition home or self-care (01) ==
LOC: WOUND CARE 09:30
PROVIDERS: ATTEND Surgery
DX: E11.622 Type 2 diabetes mellitus with other skin ulcer (principal); I83.022 Varicose veins of left lower extremity with ulcer of calf; L97.222 Non-pressure chronic ulcer of left calf with fat layer exposed; L97.822 Non-pressure chronic ulcer of other part of left lower leg with fat layer exposed; E11.22 Type 2 diabetes mellitus with diabetic chronic kidney disease; I12.9 Hypertensive chronic kidney disease with stage 1 through stage 4 chronic kidney disease, or unspecified chronic kidney disease; N18.3 Chronic kidney disease, stage 3 (moderate); E11.65 Type 2 diabetes mellitus with hyperglycemia; E78.5 Hyperlipidemia, unspecified; E66.9 Obesity, unspecified; I25.2 Old myocardial infarction; I25.10 Atherosclerotic heart disease of native coronary artery without angina pectoris; M17.11 Unilateral primary osteoarthritis, right knee; F41.8 Other specified anxiety disorders; F32.9 Major depressive disorder, single episode, unspecified; Z95.1 Presence of aortocoronary bypass graft; Z79.1 Long term (current) use of non-steroidal anti-inflammatories (NSAID); Z68.34 Body mass index [BMI] 34.0-34.9, adult; Z96.698 Presence of other orthopedic joint implants; Y83.8 Other surgical procedures as the cause of abnormal reaction of the patient, or of later complication, without mention of misadventure at the time of the procedure
CPT/HCPCS: 15271; 36416; 82948; A6209; A6223; Q4101; A6250; A6446

== ENCOUNTER 2018-11-04 09:10 | Outpatient (CLI) | payer MEDICARE, OTHER ==
--- NOTE | 2018-11-04 11:30 | NUR ---
Patient ambulated independently from [facility] and was admitted to outpatient wound care for physician visit with Forrest Mark MD. Dressing removed, wound cleansed and lidocaine applied per order. Patient assessed for changes in conditions, medications and medical history. 0944 - blood glucose 73. Patient states he feels fine at this sugar level. RN advised patient to get something to eat when he left the clinic. 1035 - Dr. Mark at bedside accompanied by RN. Wound assessed by MD. Plan of care discussed with patient. Dressings placed per MD orders. Pt instructed that they should not be disconnected from suction for more than 2 hours at a time. If they are not able to get the suction back on they need to remove the dressing and take all of the foam out of the wound, place hydrogel gauze on/in the wound, and change the dressing daily until someone can replace the dressing. Pt instructed to call the Wound Center or their Home Health Agency immediately if they notice a change in the color or amount of the fluid in the canister, their wound looks more red than usual or has a foul smell, the skin around their wound looks reddened or irritated, the dressing feels or appears loose, they experience pain or the alarm will not turn off. Pt instructed to call 911 or go to the ED if their canister fills rapidly with blood. Patient instructed on the signs and symptoms of infection and to call the Wound Center if any occur or to go to the ED if we are closed: Increased pain in wound Increase in drainage from the wound Redness in the skin surrounding the wound Bleeding from the wound Temperature of 101 or greater Patient instructed that the weight of their body puts a large amount of pressure on their wounds. This pressure keeps the new tissue from growing and inhibits new blood vessels from forming. Explained that, if they continue to bear weight on a body part that has a wound, the time it takes to heal the wound increases, the wound may get worse or the wound may not heal at all. Patient verbalized understanding of all discharge instructions and plan of care and ambulated independently out to [facility] in stable condition with no sign or symptom of distress at time of discharge.
== END 2018-11-04 11:22 | disposition home or self-care (01) ==
LOC: WOUND CARE 09:10 → EDSTATUS 09:30 → WOUND CARE 11:22
PROVIDERS: ATTEND Surgery
DX: T81.89XD Other complications of procedures, not elsewhere classified, subsequent encounter (principal); E11.622 Type 2 diabetes mellitus with other skin ulcer; I83.022 Varicose veins of left lower extremity with ulcer of calf; L97.222 Non-pressure chronic ulcer of left calf with fat layer exposed; L97.822 Non-pressure chronic ulcer of other part of left lower leg with fat layer exposed; E11.22 Type 2 diabetes mellitus with diabetic chronic kidney disease; I12.9 Hypertensive chronic kidney disease with stage 1 through stage 4 chronic kidney disease, or unspecified chronic kidney disease; N18.3 Chronic kidney disease, stage 3 (moderate); E11.65 Type 2 diabetes mellitus with hyperglycemia; E78.5 Hyperlipidemia, unspecified; E66.9 Obesity, unspecified; I25.2 Old myocardial infarction; I25.10 Atherosclerotic heart disease of native coronary artery without angina pectoris; M17.11 Unilateral primary osteoarthritis, right knee; F41.8 Other specified anxiety disorders; F32.9 Major depressive disorder, single episode, unspecified; Z95.1 Presence of aortocoronary bypass graft; Z79.1 Long term (current) use of non-steroidal anti-inflammatories (NSAID); Z68.34 Body mass index [BMI] 34.0-34.9, adult; Z96.698 Presence of other orthopedic joint implants; Y83.8 Other surgical procedures as the cause of abnormal reaction of the patient, or of later complication, without mention of misadventure at the time of the procedure
CPT/HCPCS: 36416; 82948; 97605; A4456; A6021

== ENCOUNTER 2018-11-11 09:15 | Day surgery (SDC) | payer MEDICARE, OTHER ==
[2018-11-11] MEDS ORDERED: cadexomer iodine 40gm GEL.GM TP ONE (11:20)
--- NOTE | 2018-11-11 11:30 | NUR ---
Patient ambulated independently from [facility] accompanied by daughter and was admitted to outpatient wound care for physician visit with Forrest Mark MD. Dressing removed, wound cleansed. Patient assessed for changes in conditions, medications and medical history. 1044 - blood glucose 72. Patient states he feels fine at this level, no distress noted. 1050 - Dr. Mark at bedside accompanied by RN. Wound assessed, time out performed by MD/RN. Wound debrided as detailed in the physician progress/procedure note. Plan of care discussed with patient. Dressings placed per MD orders. Patient instructed on the signs and symptoms of infection and to call the Wound Center if any occur or to go to the ED if we are closed: Increased pain in wound Increase in drainage from the wound Redness in the skin surrounding the wound Bleeding from the wound Temperature of 101 or greater Patient instructed that the weight of their body puts a large amount of pressure on their wounds. This pressure keeps the new tissue from growing and inhibits new blood vessels from forming. Explained that, if they continue to bear weight on a body part that has a wound, the time it takes to heal the wound increases, the wound may get worse or the wound may not heal at all. Patient verbalized understanding of all discharge instructions and plan of care and ambulated independently accompanied by daughter out to [facility] in stable condition with no sign or symptom of distress at time of discharge.
[2018-11-11] MEDS ORDERED: CADE40GE2 TP (14:53)
[2018-11-11] MEDS ORDERED: LIDO5CRE18 (14:53)
[2018-11-12] MEDS ORDERED: cadexomer iodine 40gm GEL.GM TP SCH (08:00)
== END 2018-11-11 11:43 | disposition home or self-care (01) ==
LOC: WOUND CARE 09:15
PROVIDERS: ATTEND Surgery
DX: T81.89XD Other complications of procedures, not elsewhere classified, subsequent encounter (principal); E11.622 Type 2 diabetes mellitus with other skin ulcer; I83.022 Varicose veins of left lower extremity with ulcer of calf; L97.222 Non-pressure chronic ulcer of left calf with fat layer exposed; L97.822 Non-pressure chronic ulcer of other part of left lower leg with fat layer exposed; E11.22 Type 2 diabetes mellitus with diabetic chronic kidney disease; I12.9 Hypertensive chronic kidney disease with stage 1 through stage 4 chronic kidney disease, or unspecified chronic kidney disease; N18.3 Chronic kidney disease, stage 3 (moderate); E11.65 Type 2 diabetes mellitus with hyperglycemia; E78.5 Hyperlipidemia, unspecified; E66.9 Obesity, unspecified; I25.2 Old myocardial infarction; I25.10 Atherosclerotic heart disease of native coronary artery without angina pectoris; M17.11 Unilateral primary osteoarthritis, right knee; F41.8 Other specified anxiety disorders; F32.9 Major depressive disorder, single episode, unspecified; Z95.1 Presence of aortocoronary bypass graft; Z79.1 Long term (current) use of non-steroidal anti-inflammatories (NSAID); Z68.34 Body mass index [BMI] 34.0-34.9, adult; Z96.698 Presence of other orthopedic joint implants; Y83.8 Other surgical procedures as the cause of abnormal reaction of the patient, or of later complication, without mention of misadventure at the time of the procedure
CPT/HCPCS: 36416; 82948; 87070; 87075; 87102; 97597; A6446

== ENCOUNTER 2018-12-05 11:14 | Emergency (ER) | payer MEDICARE, OTHER ==
[~2018-12-05] VITALS: Ht 175.3 cm; Wt 98.0 kg
[~2018-12-05 11:14] MED LIST changes: +CADE40GE2 TP; +LIDO5CRE18
[2018-12-05 11:24] VITALS: BP 135/60
--- NOTE | 2018-12-05 14:31 | NUR ---
Patient called regarding LWBS and encouraged to return, pt states he will wait and see Dr. Mark on Sunday and he "should not have to wait to be seen in an emergency room"
== END 2018-12-05 14:34 | disposition left against medical advice (07) ==
LOC: ER 11:15
DX: L08.89 Other specified local infections of the skin and subcutaneous tissue (principal); Z53.21 Procedure and treatment not carried out due to patient leaving prior to being seen by health care provider

== ENCOUNTER 2021-06-23 11:00 | Inpatient (IN) | payer MEDICARE, OTHER ==
[~2021-06-23] VITALS: Ht 167.6 cm; Wt 104.5 kg
[~2021-06-23 11:00] MED LIST changes: -AMLO5TAB4 PO; +APIX5TAB3 PO; +ASCO500C18 PO; +ASPI-529 PO; -BUPR150T6 PO; -CADE40GE2 TP; -CHOL400C8 PO; -CYAN500T63 PO; +CYAN500T71 PO; -ESCI5TAB PO; +FLAX10007 PO; -FLO0.4C PO; -KRIL1CAP12 PO; +LAN0.125T PO; -LIDO5CRE18; +LISI20TA28 PO; +METF-438 PO; -MULT-1085 PO; +OMEG1CAP13 PO; +OXYB10TA30 PO; -SIMV10TA6 PO; +SIMV10TA98 PO; +SUPER B PO; +VITA400T10 PO; -WARF-55 PO
[2021-06-23 12:23] LABS: BASOPHILS % (AUTO) 0.5 % (0-1); EOSINOPHILS # (AUTO) 0.5 X10'3 (0-0.9); EOSINOPHILS % (AUTO) 6.4 % (0-6); HEMATOCRIT 40.9 % (42.0-52.0); MEAN CORPUSCULAR HEMOGLOBIN 29.4 PG (27.0-31.0); MEAN CORPUSCULAR HGB CONC 31.8 g/dL (33.0-36.5); MEAN CORPUSCULAR VOLUME 92.5 FL (78-98); MEAN PLATELET VOLUME 8.4 FL (7.4-10.4); MONOCYTES # (AUTO) 0.6 X10'3 (0-0.9); NEUTROPHILS # (AUTO) 3.9 X10'3 (1.8-7.7); NEUTROPHILS % (AUTO) 55.1 % (42-75); PLATELET COUNT 209 X10'3 (140-440); RED BLOOD COUNT 4.42 X10'6 (4.70-6.10); RED CELL DISTRIBUTION WIDTH 15.7 % (11.5-14.5); WHITE BLOOD COUNT 7.1 X10'3 (4.5-11.0)
[2021-06-23 12:32] LABS: ALANINE AMINOTRANSFERASE 24 U/L (12-78); ALBUMIN 3.6 G/DL (3.4-5.0); ALKALINE PHOSPHATASE 85 IU/L (46-116); ANION GAP 7 (8-16); ASPARTATE AMINO TRANSFERASE 21 U/L (10-37); BILIRUBIN,TOTAL 0.3 MG/DL (0.1-1.0); BLOOD UREA NITROGEN 31 MG/DL (7-18); BUN/CREATININE RATIO 18.6 (5.4-32.0); CALCIUM 8.3 MG/DL (8.5-10.1); CHLORIDE 112 MMOL/L (99-107); CREATININE 1.67 MG/DL (0.60-1.10); GLUCOSE 77 MG/DL (70-104); SODIUM 140 MMOL/L (135-145); TOTAL CARBON DIOXIDE 21.4 MMOL/L (24-32); TOTAL PROTEIN 7.2 G/DL (6.4-8.2); eGFR 41 ML/MIN
[2021-06-23 12:35] LABS: POTASSIUM 7.6 MMOL/L (3.5-5.1)
[2021-06-23] MEDS ORDERED: SODIUM ZIRCONIUM CYCLOSILICATE 10 GM POWD.PACK PO STA (14:59)
[2021-06-23] MEDS ORDERED: dextrose 50%-water 50ml dispensing syringe IV ONE (15:00)
[2021-06-23] MEDS ORDERED: insulin regular, human U-100 3ml vial - multi-dose IV ONE (15:00)
[2021-06-23] MEDS ORDERED: albuterol 2.5 MG/3 ML nebule CONTNEB PRN (15:00)
[2021-06-23] MEDS ORDERED: calcium chloride 100 MG/1 ML inj IV ONE (15:00)
[2021-06-23] MEDS ORDERED: VITA-268 PO (16:10)
[2021-06-23] MEDS ORDERED: TADA20TA PO (16:10)
[2021-06-23] MEDS ORDERED: OMEG-79 PO (16:10)
[2021-06-23] MEDS ORDERED: CHOL1POW2 PO (16:10)
[2021-06-23] MEDS ORDERED: ASPI81TA47 PO (16:10)
[2021-06-23] MEDS ORDERED: PANT40TA54 PO (16:10)
[2021-06-23] MEDS ORDERED: UBID100C16 PO (16:10)
[2021-06-23] MEDS ORDERED: GABA300C PO (16:10)
[2021-06-23] MEDS ORDERED: insulin Lispro (HumaLOG) vial - multi-dose SQ SCH (16:35)
[2021-06-23] MEDS ORDERED: HYDROcodone/acetaminophen 5mg/325mg tablet PO PRN (16:35)
[2021-06-23] MEDS ORDERED: magnesium 2GM in 50ml NS 50 ML IV PRN (16:35)
[2021-06-23] MEDS ORDERED: potassium CL 10mEq/100ml bag 100 ML IV PRN (16:35)
[2021-06-23] MEDS ORDERED: acetaminophen 325mg tablet PO PRN ×2 (16:35)
[2021-06-23] MEDS ORDERED: glucagon, human recombinant 1mg kit SUBCUT PRN (16:35)
[2021-06-23] MEDS ORDERED: dextrose 50%-water 50ml dispensing syringe IV PRN (16:35)
[2021-06-23] MEDS ORDERED: MESSAGE TO PHARMACY PO ONE (16:35)
[2021-06-23] MEDS ORDERED: HYDROcodone/acetaminophen 10/325mg tab PO PRN (16:35)
[2021-06-23] MEDS ORDERED: dextrose ORAL solution 15 GM/59 ML bottle PO PRN ×2 (16:35)
[2021-06-23] MEDS ORDERED: ondansetron/PF 4mg/2ml inj IV PRN (16:35)
[2021-06-23] MEDS ORDERED: magnesium 4gm in 100ml NS 100 ML IV PRN (16:35)
[2021-06-23] MEDS ORDERED: potassium Cl 20 mEq SR tablet PO PRN ×2 (16:35)
[2021-06-23 17:01] LABS: HEMOGLOBIN A1C 5.8 % (4.5-6.2)
[2021-06-23 17:19] LABS: ALBUMIN 3.5 G/DL (3.4-5.0); ANION GAP 9 (8-16); BLOOD UREA NITROGEN 32 MG/DL (7-18); BUN/CREATININE RATIO 18.8 (5.4-32.0); CALCIUM 9.1 MG/DL (8.5-10.1); CHLORIDE 113 MMOL/L (99-107); GLUCOSE 79 MG/DL (70-104); SODIUM 141 MMOL/L (135-145); eGFR 40 ML/MIN
[2021-06-23 17:26] LABS: POTASSIUM 6.3 MMOL/L (3.5-5.1)
[2021-06-23] MEDS: normal saline 1000ml 1,000 ML IV SCH ×2 (18:03→22:13)
[2021-06-23] MEDS: vitamin B comp w/Vit. C tab 1 TAB TABLET PO SCH (20:00)
[2021-06-23] MEDS ORDERED: cyanocobalamin 500mcg tablet PO SCH (20:00)
[2021-06-23] MEDS: ascorbic acid 500mg tablet PO SCH (20:00)
[2021-06-23] MEDS: K and/or MAG REPLACEMENT MC SCH (20:00)
[2021-06-23] MEDS: insulin glargine (Lantus) pen - multi-dose SQ SCH (21:00)
[2021-06-23 21:15] VITALS: BP 148/56
--- NOTE | 2021-06-23 21:15 | NUR ---
received pt in bed AAOx4, not in any apparent distress. Pt oriented to room and staff. placed pt on the monitor , IV fluid started. Bedside commode placed by the bed with instruction to use it when needed. Fall precaution in progress.
[2021-06-23] MEDS: atorvastatin 10mg tablet PO SCH (22:23)
[2021-06-23] MEDS: SODIUM ZIRCONIUM CYCLOSILICATE 10 GM POWD.PACK PO SCH (22:24)
[2021-06-23] MEDS: gabapentin 300mg capsule PO SCH (22:25)
[2021-06-24] VITALS (7 sets, daily range): BP systolic 133–177; BP diastolic 58–73
--- NOTE | 2021-06-24 05:18 | NUR ---
Blood draw done and sent to lab. Pt denied any discomfort.
[2021-06-24 05:25] LABS: BASOPHILS % (AUTO) 0.4 % (0-1); EOSINOPHILS # (AUTO) 0.3 X10'3 (0-0.9); EOSINOPHILS % (AUTO) 5.2 % (0-6); HEMATOCRIT 38.4 % (42.0-52.0); HEMOGLOBIN 12.5 g/dl (14.0-17.9); LYMPHOCYTES # (AUTO) 2.2 X10'3 (1.1-4.8); LYMPHOCYTES % (AUTO) 33.8 % (21-51); MEAN CORPUSCULAR HEMOGLOBIN 29.7 PG (27.0-31.0); MEAN CORPUSCULAR HGB CONC 32.5 g/dL (33.0-36.5); MEAN CORPUSCULAR VOLUME 91.4 FL (78-98); MEAN PLATELET VOLUME 8.1 FL (7.4-10.4); MONOCYTES # (AUTO) 0.6 X10'3 (0-0.9); MONOCYTES % (AUTO) 9.5 % (2-12); NEUTROPHILS # (AUTO) 3.3 X10'3 (1.8-7.7); NEUTROPHILS % (AUTO) 51.1 % (42-75); PLATELET COUNT 186 X10'3 (140-440); RED CELL DISTRIBUTION WIDTH 15.3 % (11.5-14.5); WHITE BLOOD COUNT 6.4 X10'3 (4.5-11.0)
[2021-06-24 05:40] LABS: ALANINE AMINOTRANSFERASE 25 U/L (12-78); ALBUMIN 3.1 G/DL (3.4-5.0); ALKALINE PHOSPHATASE 76 IU/L (46-116); ANION GAP 11 (8-16); ASPARTATE AMINO TRANSFERASE 17 U/L (10-37); BILIRUBIN,TOTAL 0.3 MG/DL (0.1-1.0); BLOOD UREA NITROGEN 30 MG/DL (7-18); BUN/CREATININE RATIO 18.3 (5.4-32.0); CALCIUM 8.7 MG/DL (8.5-10.1); CHLORIDE 113 MMOL/L (99-107); CREATININE 1.64 MG/DL (0.60-1.10); GLUCOSE 92 MG/DL (70-104); MAGNESIUM 1.8 MG/DL (1.5-2.4); SODIUM 145 MMOL/L (135-145); TOTAL CARBON DIOXIDE 20.9 MMOL/L (24-32); TOTAL PROTEIN 6.2 G/DL (6.4-8.2); eGFR 42 ML/MIN
[2021-06-24 05:41] LABS: POTASSIUM 6.5 MMOL/L (3.5-5.1)
[2021-06-24] MEDS ORDERED: sodium polystyrene sulfonate 15gm/60ml oral suspension PO ONE (06:20)
[2021-06-24] MEDS ORDERED: CALCIUM GLUC 1gm/50ml NACL,iso 100 ML IV ONE ×2 (06:20→09:05)
[2021-06-24] MEDS ORDERED: albuterol 2.5 MG/3 ML nebule NEB ONE (06:20)
[2021-06-24] MEDS ORDERED: insulin regular, human 10 units/0.1 ml syringe IV ONE (06:20)
[2021-06-24] MEDS: cyanocobalamin 500mcg tablet PO SCH ×2 (08:00→20:00)
[2021-06-24] MEDS: ascorbic acid 500mg tablet PO SCH ×2 (08:00→20:00)
[2021-06-24] MEDS: K and/or MAG REPLACEMENT MC SCH ×2 (08:00→20:00)
[2021-06-24] MEDS ORDERED: non-formulary drug (Ubidecarenone (Coq-10) 300 MG) PO SCH (08:00)
[2021-06-24] MEDS: OMEGA-3/DHA/EPA/FISH OIL 1 EACH CAPSULE.DR PO SCH (08:00)
[2021-06-24] MEDS: vitamin B comp w/Vit. C tab 1 TAB TABLET PO SCH ×2 (08:00→20:00)
[2021-06-24] MEDS: vitamin E 400 unit capsule PO SCH (08:00)
[2021-06-24] MEDS ORDERED: SODIUM ZIRCONIUM CYCLOSILICATE 10 GM POWD.PACK PO STA (08:44)
[2021-06-24] MEDS ORDERED: insulin regular, human U-100 3ml vial - multi-dose IV ONE ×2 (08:45→20:00)
[2021-06-24] MEDS ORDERED: dextrose 50%-water 50ml dispensing syringe IV ONE ×2 (08:45→20:00)
[2021-06-24] MEDS ORDERED: calcium gluconate inj. 1 GM in normal saline 100ml IV soln 100 ML IV ONE (08:45)
[2021-06-24] MEDS ORDERED: albuterol 2.5 MG/3 ML nebule CONTNEB SCH ×2 (08:45→20:00)
[2021-06-24] MEDS: pantoprazole 40mg Tablet.DR PO SCH (08:48)
[2021-06-24] MEDS: oxybutynin 5mg tablet PO SCH ×2 (08:50→20:00)
[2021-06-24] MEDS: SODIUM ZIRCONIUM CYCLOSILICATE 10 GM POWD.PACK PO SCH ×2 (09:10→14:04)
[2021-06-24] MEDS ORDERED: SODIUM ZIRCONIUM CYCLOSILICATE 10 GM POWD.PACK PO ONE (09:35)
[2021-06-24] MEDS: chloestyramine/aspartame 4gm packet PO SCH (10:00)
[2021-06-24] MEDS: normal saline 1000ml 1,000 ML IV SCH ×2 (12:13→22:35)
[2021-06-24 12:38] LABS: ALBUMIN 3.6 G/DL (3.4-5.0); ANION GAP 12 (8-16); BLOOD UREA NITROGEN 29 MG/DL (7-18); BUN/CREATININE RATIO 17.3 (5.4-32.0); CALCIUM 9.4 MG/DL (8.5-10.1); CHLORIDE 112 MMOL/L (99-107); CREATININE 1.68 MG/DL (0.60-1.10); GLUCOSE 74 MG/DL (70-104); POTASSIUM 5.9 MMOL/L (3.5-5.1); SODIUM 143 MMOL/L (135-145); TOTAL CARBON DIOXIDE 19.3 MMOL/L (24-32); eGFR 40 ML/MIN
[2021-06-24 19:49] LABS: ALBUMIN 3.2 G/DL (3.4-5.0); ANION GAP 9 (8-16); BLOOD UREA NITROGEN 26 MG/DL (7-18); BUN/CREATININE RATIO 16.7 (5.4-32.0); CALCIUM 8.7 MG/DL (8.5-10.1); CHLORIDE 112 MMOL/L (99-107); CREATININE 1.56 MG/DL (0.60-1.10); GLUCOSE 100 MG/DL (70-104); POTASSIUM 5.8 MMOL/L (3.5-5.1); SODIUM 142 MMOL/L (135-145); TOTAL CARBON DIOXIDE 21.3 MMOL/L (24-32); eGFR 44 ML/MIN
[2021-06-24] MEDS ORDERED: calcium chloride 100 MG/1 ML inj IV ONE (20:00)
[2021-06-24] MEDS: insulin glargine (Lantus) pen - multi-dose SQ SCH (21:00)
[2021-06-24] MEDS: apixaban 5mg tablet PO SCH (21:33)
[2021-06-24] MEDS: gabapentin 300mg capsule PO SCH (21:34)
[2021-06-24] MEDS: atorvastatin 10mg tablet PO SCH (21:34)
[2021-06-25 02:00] VITALS: BP 135/56
--- NOTE | 2021-06-25 06:27 | NUR ---
Patient in room PCU 3018. I have received report from Purnima and had the opportunity to ask questions and assume patient care.
[2021-06-25 07:00] VITALS: BP 109/52
[2021-06-25] MEDS: dextrose 50%-water 50ml dispensing syringe IV PRN ×2 (07:02→07:03)
--- NOTE | 2021-06-25 07:28 | NUR ---
Made aware by charge nurse that patient is unresponsive. Blood sugar check at 0655-29mg/dl. Dextrose 50% administered at 0658 with blood glucose rechec reading 48mg/dl. Patient was still unresponsive. 2nd Dextrose 50% administered at 0703 and rechecked at 0717 reads-203mg/dl. Patient was placed on a nonrebreather mask with O2 sat. 98-100%. He was observed snoring during the rapid and disoriented when awake. Patient was reoriented. At 0717, patient was A&OX4. Initial Bp-134/86, HR-74. End bp 127/45, HR-83. Will continue to monitor.
[2021-06-25 07:38] LABS: BASOPHILS % (AUTO) 0.3 % (0-1); EOSINOPHILS % (AUTO) 0.2 % (0-6); HEMATOCRIT 39.1 % (42.0-52.0); HEMOGLOBIN 12.8 g/dl (14.0-17.9); LYMPHOCYTES # (AUTO) 0.5 X10'3 (1.1-4.8); LYMPHOCYTES % (AUTO) 4.7 % (21-51); MEAN CORPUSCULAR HEMOGLOBIN 30.1 PG (27.0-31.0); MEAN CORPUSCULAR HGB CONC 32.6 g/dL (33.0-36.5); MEAN CORPUSCULAR VOLUME 92.3 FL (78-98); MEAN PLATELET VOLUME 8.6 FL (7.4-10.4); MONOCYTES # (AUTO) 0.5 X10'3 (0-0.9); MONOCYTES % (AUTO) 4.8 % (2-12); NEUTROPHILS # (AUTO) 9.4 X10'3 (1.8-7.7); PLATELET COUNT 221 X10'3 (140-440); RED BLOOD COUNT 4.24 X10'6 (4.70-6.10); RED CELL DISTRIBUTION WIDTH 15.7 % (11.5-14.5); WHITE BLOOD COUNT 10.5 X10'3 (4.5-11.0)
[2021-06-25] MEDS: oxybutynin 5mg tablet PO SCH ×2 (07:57→20:00)
[2021-06-25] MEDS: pantoprazole 40mg Tablet.DR PO SCH (07:58)
[2021-06-25] MEDS: apixaban 5mg tablet PO SCH ×2 (07:58→20:09)
[2021-06-25] MEDS: aspirin 81mg, enteric-coated 1 TAB TABLET.DR PO SCH (07:58)
[2021-06-25] MEDS: OMEGA-3/DHA/EPA/FISH OIL 1 EACH CAPSULE.DR PO SCH (07:59)
[2021-06-25] MEDS: vitamin B comp w/Vit. C tab 1 TAB TABLET PO SCH ×2 (07:59→20:00)
[2021-06-25] MEDS: cyanocobalamin 500mcg tablet PO SCH ×2 (08:00→20:00)
[2021-06-25] MEDS: K and/or MAG REPLACEMENT MC SCH ×2 (08:00→20:00)
[2021-06-25] MEDS: ascorbic acid 500mg tablet PO SCH ×2 (08:00→20:00)
[2021-06-25] MEDS: vitamin E 400 unit capsule PO SCH (08:00)
[2021-06-25 08:02] LABS: ALANINE AMINOTRANSFERASE 22 U/L (12-78); ALBUMIN 3.3 G/DL (3.4-5.0); ALBUMIN/GLOBULIN RATIO 1.1 (1.1-1.5); ALKALINE PHOSPHATASE 71 IU/L (46-116); ANION GAP 10 (8-16); ASPARTATE AMINO TRANSFERASE 22 U/L (10-37); BILIRUBIN,TOTAL 0.2 MG/DL (0.1-1.0); BLOOD UREA NITROGEN 25 MG/DL (7-18); BUN/CREATININE RATIO 17.4 (5.4-32.0); CALCIUM 8.2 MG/DL (8.5-10.1); CHLORIDE 114 MMOL/L (99-107); CREATININE 1.44 MG/DL (0.60-1.10); GLUCOSE 56 MG/DL (70-104); MAGNESIUM 1.7 MG/DL (1.5-2.4); POTASSIUM 5.2 MMOL/L (3.5-5.1); SODIUM 143 MMOL/L (135-145); TOTAL CARBON DIOXIDE 18.7 MMOL/L (24-32); TOTAL PROTEIN 6.4 G/DL (6.4-8.2); eGFR 48 ML/MIN
--- NOTE | 2021-06-25 08:56 | NUR ---
PAGER ID: [phone] MESSAGE: [id number] WEI. HR REMAINING IN THE MID 40'S. RAPID WAS CALLED @ 0630 THIS A.M D/T UNRESPONSIVENESS. RESULT OF LOW BG 29. MAKI BARON
[2021-06-25] MEDS: chloestyramine/aspartame 4gm packet PO SCH (10:00)
[2021-06-25 11:00] VITALS: BP 165/82
[2021-06-25 12:21] LABS: ALBUMIN 3.4 G/DL (3.4-5.0); ANION GAP 8 (8-16); BLOOD UREA NITROGEN 26 MG/DL (7-18); BUN/CREATININE RATIO 19.1 (5.4-32.0); CALCIUM 8.5 MG/DL (8.5-10.1); CHLORIDE 112 MMOL/L (99-107); CREATININE 1.36 MG/DL (0.60-1.10); GLUCOSE 173 MG/DL (70-104); POTASSIUM 5.8 MMOL/L (3.5-5.1); SODIUM 140 MMOL/L (135-145); TOTAL CARBON DIOXIDE 20.3 MMOL/L (24-32); eGFR 52 ML/MIN
[2021-06-25] MEDS ORDERED: albuterol 2.5 MG/3 ML nebule CONTNEB SCH (12:35)
[2021-06-25] MEDS ORDERED: insulin regular, human 10 units/0.1 ml syringe IV ONE (12:35)
[2021-06-25] MEDS ORDERED: dextrose 50%-water 50ml dispensing syringe IV ONE (12:35)
[2021-06-25] MEDS ORDERED: calcium chloride 100 MG/1 ML inj IV ONE (12:35)
[2021-06-25] MEDS ORDERED: calcium chloride inj. 1,000 MG in NS 100ml IV soln (110ml) IV ONE (13:30)
[2021-06-25] MEDS: normal saline 1000ml 1,000 ML IV SCH ×2 (13:45→18:35)
[2021-06-25 15:00] VITALS: BP 172/77
[2021-06-25] MEDS: hydrALAZINE 20mg/ml inj. IV PRN (17:19)
[2021-06-25 18:00] VITALS: BP 150/55
[2021-06-25] MEDS: atorvastatin 10mg tablet PO SCH (20:09)
[2021-06-25] MEDS: gabapentin 300mg capsule PO SCH (20:09)
[2021-06-25] MEDS: insulin glargine (Lantus) pen - multi-dose SQ SCH (21:00)
[2021-06-25 22:00] VITALS: BP 150/52
[2021-06-26 02:00] VITALS: BP 156/44
[2021-06-26] MEDS: normal saline 1000ml 1,000 ML IV SCH ×2 (04:35→14:35)
[2021-06-26 06:00] VITALS: BP 110/65
--- NOTE | 2021-06-26 06:30 | NUR ---
Patient in room PCU 3018. I have received report from Laura WILKES and had the opportunity to ask questions and assume patient care. Patient is resting comfortably in bed, plan of care discussed. All needs met at this time.
[2021-06-26 06:52] LABS: BASOPHILS % (AUTO) 0.4 % (0-1); EOSINOPHILS # (AUTO) 0.3 X10'3 (0-0.9); EOSINOPHILS % (AUTO) 4.4 % (0-6); HEMATOCRIT 39.6 % (42.0-52.0); HEMOGLOBIN 13.1 g/dl (14.0-17.9); LYMPHOCYTES # (AUTO) 1.9 X10'3 (1.1-4.8); LYMPHOCYTES % (AUTO) 26.5 % (21-51); MEAN CORPUSCULAR HEMOGLOBIN 30.4 PG (27.0-31.0); MEAN CORPUSCULAR HGB CONC 33.1 g/dL (33.0-36.5); MEAN CORPUSCULAR VOLUME 91.7 FL (78-98); MEAN PLATELET VOLUME 8.7 FL (7.4-10.4); MONOCYTES # (AUTO) 0.6 X10'3 (0-0.9); MONOCYTES % (AUTO) 8.3 % (2-12); NEUTROPHILS # (AUTO) 4.4 X10'3 (1.8-7.7); NEUTROPHILS % (AUTO) 60.4 % (42-75); PLATELET COUNT 183 X10'3 (140-440); RED BLOOD COUNT 4.32 X10'6 (4.70-6.10); RED CELL DISTRIBUTION WIDTH 15.4 % (11.5-14.5); WHITE BLOOD COUNT 7.3 X10'3 (4.5-11.0)
[2021-06-26 07:15] LABS: ALANINE AMINOTRANSFERASE 28 U/L (12-78); ALBUMIN 2.9 G/DL (3.4-5.0); ALKALINE PHOSPHATASE 71 IU/L (46-116); ANION GAP 9 (8-16); ASPARTATE AMINO TRANSFERASE 64 U/L (10-37); BILIRUBIN,TOTAL 0.2 MG/DL (0.1-1.0); BLOOD UREA NITROGEN 23 MG/DL (7-18); BUN/CREATININE RATIO 16.3 (5.4-32.0); CALCIUM 8.6 MG/DL (8.5-10.1); CHLORIDE 114 MMOL/L (99-107); CREATININE 1.41 MG/DL (0.60-1.10); GLUCOSE 166 MG/DL (70-104); MAGNESIUM 1.6 MG/DL (1.5-2.4); SODIUM 144 MMOL/L (135-145); TOTAL CARBON DIOXIDE 20.6 MMOL/L (24-32); TOTAL PROTEIN 5.9 G/DL (6.4-8.2); eGFR 50 ML/MIN
[2021-06-26 07:21] LABS: POTASSIUM 5.5 MMOL/L (3.5-5.1)
[2021-06-26] MEDS: ascorbic acid 500mg tablet PO SCH ×2 (08:00→20:00)
[2021-06-26] MEDS: vitamin E 400 unit capsule PO SCH (08:00)
[2021-06-26] MEDS: OMEGA-3/DHA/EPA/FISH OIL 1 EACH CAPSULE.DR PO SCH (08:00)
[2021-06-26] MEDS: K and/or MAG REPLACEMENT MC SCH ×2 (08:00→20:00)
[2021-06-26] MEDS: cyanocobalamin 500mcg tablet PO SCH ×2 (08:00→20:00)
[2021-06-26] MEDS: vitamin B comp w/Vit. C tab 1 TAB TABLET PO SCH ×2 (08:00→20:00)
[2021-06-26] MEDS ORDERED: SODIUM ZIRCONIUM CYCLOSILICATE 10 GM POWD.PACK PO ONE (09:00)
[2021-06-26] MEDS: pantoprazole 40mg Tablet.DR PO SCH (09:06)
[2021-06-26] MEDS: aspirin 81mg, enteric-coated 1 TAB TABLET.DR PO SCH (09:06)
[2021-06-26] MEDS: apixaban 5mg tablet PO SCH ×2 (09:06→20:35)
[2021-06-26] MEDS: oxybutynin 5mg tablet PO SCH ×2 (09:06→20:34)
[2021-06-26 11:00] VITALS: BP 157/72
[2021-06-26] MEDS: diltiazem 30mg tablet PO SCH ×3 (11:03→20:34)
--- NOTE | 2021-06-26 11:55 | NUR ---
TC from RN who states MD would like RD to provide pt w/ education regarding potassium content in foods. Provided PtS/O w/ written and verbal education regarding high and low potassium foods w/ RD contact info. Obtained food preferences as well and have d/w dietary. Addendum: 06/26/21 at [address] Amended: Links added.
[2021-06-26] MEDS: chloestyramine/aspartame 4gm packet PO SCH (11:59)
[2021-06-26] MEDS ORDERED: SODIUM ZIRCONIUM CYCLOSILICATE 10 GM POWD.PACK PO SCH (13:00)
[2021-06-26 15:00] VITALS: BP 157/75
[2021-06-26 18:00] VITALS: BP 157/77
--- NOTE | 2021-06-26 18:33 | NUR ---
Problems reprioritized. Patient report given, questions answered & plan of care reviewed with Laura WILKES.
[2021-06-26] MEDS: atorvastatin 10mg tablet PO SCH (20:34)
[2021-06-26] MEDS: gabapentin 300mg capsule PO SCH (20:34)
[2021-06-26] MEDS: insulin glargine (Lantus) pen - multi-dose SQ SCH (21:00)
[2021-06-27] MEDS: hydrALAZINE 20mg/ml inj. IV PRN ×2 (00:25→12:32)
[2021-06-27 00:29] VITALS: BP 171/70
[2021-06-27 01:10] VITALS: BP 136/58
[2021-06-27 06:00] VITALS: BP 154/73
[2021-06-27 06:49] LABS: BASOPHILS % (AUTO) 0.5 % (0-1); EOSINOPHILS # (AUTO) 0.5 X10'3 (0-0.9); EOSINOPHILS % (AUTO) 7.2 % (0-6); HEMATOCRIT 37.8 % (42.0-52.0); HEMOGLOBIN 12.7 g/dl (14.0-17.9); LYMPHOCYTES # (AUTO) 2.3 X10'3 (1.1-4.8); LYMPHOCYTES % (AUTO) 32.9 % (21-51); MEAN CORPUSCULAR HEMOGLOBIN 30.4 PG (27.0-31.0); MEAN CORPUSCULAR HGB CONC 33.5 g/dL (33.0-36.5); MEAN CORPUSCULAR VOLUME 90.7 FL (78-98); MEAN PLATELET VOLUME 8.8 FL (7.4-10.4); MONOCYTES # (AUTO) 0.7 X10'3 (0-0.9); MONOCYTES % (AUTO) 9.8 % (2-12); NEUTROPHILS # (AUTO) 3.5 X10'3 (1.8-7.7); NEUTROPHILS % (AUTO) 49.6 % (42-75); PLATELET COUNT 188 X10'3 (140-440); RED BLOOD COUNT 4.17 X10'6 (4.70-6.10); RED CELL DISTRIBUTION WIDTH 14.9 % (11.5-14.5); WHITE BLOOD COUNT 7.1 X10'3 (4.5-11.0)
--- NOTE | 2021-06-27 06:57 | NUR ---
Patient in room PCU 3018. I have received report from KATRIN BILLS, and had the opportunity to ask questions and assume patient care.
[2021-06-27 07:18] LABS: ALANINE AMINOTRANSFERASE 25 U/L (12-78); ALKALINE PHOSPHATASE 70 IU/L (46-116); ANION GAP 9 (8-16); ASPARTATE AMINO TRANSFERASE 33 U/L (10-37); BILIRUBIN,TOTAL 0.3 MG/DL (0.1-1.0); BLOOD UREA NITROGEN 24 MG/DL (7-18); BUN/CREATININE RATIO 16.7 (5.4-32.0); CALCIUM 8.6 MG/DL (8.5-10.1); CREATININE 1.44 MG/DL (0.60-1.10); GLUCOSE 137 MG/DL (70-104); MAGNESIUM 1.5 MG/DL (1.5-2.4); SODIUM 143 MMOL/L (135-145); TOTAL PROTEIN 6.1 G/DL (6.4-8.2); eGFR 48 ML/MIN
[2021-06-27 07:20] LABS: CHLORIDE 113 MMOL/L (99-107)
[2021-06-27] MEDS ORDERED: diltiazem CD 120mg capsule (once-daily) PO SCH (08:00)
[2021-06-27] MEDS: vitamin B comp w/Vit. C tab 1 TAB TABLET PO SCH (08:00)
[2021-06-27] MEDS: OMEGA-3/DHA/EPA/FISH OIL 1 EACH CAPSULE.DR PO SCH (08:00)
[2021-06-27] MEDS: K and/or MAG REPLACEMENT MC SCH (08:00)
[2021-06-27] MEDS: ascorbic acid 500mg tablet PO SCH (08:00)
[2021-06-27] MEDS: vitamin E 400 unit capsule PO SCH (08:00)
[2021-06-27] MEDS: cyanocobalamin 500mcg tablet PO SCH (08:00)
[2021-06-27] MEDS: aspirin 81mg, enteric-coated 1 TAB TABLET.DR PO SCH (08:41)
[2021-06-27] MEDS: pantoprazole 40mg Tablet.DR PO SCH (08:42)
[2021-06-27] MEDS: oxybutynin 5mg tablet PO SCH (08:42)
[2021-06-27] MEDS: apixaban 5mg tablet PO SCH (08:42)
[2021-06-27] MEDS ORDERED: CARCD120C PO ×2 (10:32)
--- NOTE | 2021-06-27 12:24 | NUR ---
PAGE SENT PAGER ID: [phone] MESSAGE: [id number] GABI CARVAJAL, BP 179/78, HR 60, GIVING PRN HYDRAZALINE, CONCERNED ABOUT D/C, PCP WILL ADDRESS? PROBLEMS WITH PRESCRIPTION. THANK YOU, GLENROY [id number]
[2021-06-27 12:32] VITALS: BP_SYST 60
[2021-06-27] MEDS: chloestyramine/aspartame 4gm packet PO SCH (12:33)
[2021-06-27] MEDS ORDERED: HYDR-4069 PO ×3 (12:48→13:39)
[2021-06-27] MEDS ORDERED: DILT-88 PO (13:39)
--- NOTE | 2021-06-27 14:59 | NUR ---
PT STABLE FOR D/C PER MD. PIV REMOVED WITH TIP INTACT. TELE BOX REMOVED. D/C INSTRUCTIONS REVIEWED WITH PT AND HIS , OPPORTUNITY GIVEN FOR QUESTIONS. APPROPRIATE PAPERWORK SIGNED. PRESCRIPTIONS FAXED TO [facility] ON [address]. PT DISCHARGED TO HOME. PT WHEELED TO PRIVATE VEHICLE BY HOSPITAL STAFF.
== END 2021-06-27 14:30 | disposition home or self-care (01) | DRG 641 ==
LOC: ER 11:02 → ED HOLD 16:36 → PCU 3S 21:10
PROVIDERS: ADMIT Family Medicine; ATTEND Family Medicine
DX: E87.5 Hyperkalemia (principal); N17.9 Acute kidney failure, unspecified; N11.1 Chronic obstructive pyelonephritis; E11.22 Type 2 diabetes mellitus with diabetic chronic kidney disease; I48.0 Paroxysmal atrial fibrillation; I12.9 Hypertensive chronic kidney disease with stage 1 through stage 4 chronic kidney disease, or unspecified chronic kidney disease; Z20.822 Contact with and (suspected) exposure to COVID-19; E78.5 Hyperlipidemia, unspecified; I25.10 Atherosclerotic heart disease of native coronary artery without angina pectoris; N25.89 Other disorders resulting from impaired renal tubular function; F32.A Depression, unspecified; N18.30 Chronic kidney disease, stage 3 unspecified; T46.4X5A Adverse effect of angiotensin-converting-enzyme inhibitors, initial encounter; N35.819 Other urethral stricture, male, unspecified site; R00.1 Bradycardia, unspecified; N40.1 Benign prostatic hyperplasia with lower urinary tract symptoms; Z79.01 Long term (current) use of anticoagulants; Z79.84 Long term (current) use of oral hypoglycemic drugs; I25.2 Old myocardial infarction; Z82.49 Family history of ischemic heart disease and other diseases of the circulatory system; Z95.1 Presence of aortocoronary bypass graft; Z79.899 Other long term (current) drug therapy; Z79.82 Long term (current) use of aspirin; Z86.73 Personal history of transient ischemic attack (TIA), and cerebral infarction without residual deficits; Z90.49 Acquired absence of other specified parts of digestive tract; Y92.89 Other specified places as the place of occurrence of the external cause
CPT/HCPCS: 36415; 76770; 80048; 80053; 82948; 83036; 83735; 85025; 87635; 93005; 94640; 94760; 99285; A7015; G0378; J0360; J0610; J1815; J3490; J7030

== ENCOUNTER 2021-08-24 09:18 | Outpatient (CLI) | payer MEDICARE, OTHER ==
[~2021-08-24] VITALS: Ht 172.7 cm; Wt 108.9 kg
[~2021-08-24 09:18] MED LIST changes: -ASPI-529 PO; +ASPI81TA47 PO; +CHOL1POW2 PO; +DILT-88 PO; +GABA300C PO; +HYDR-4069 PO; -LAN0.125T PO; -LISI20TA28 PO; -METO-395 PO; +OMEG-79 PO; -OMEG1CAP13 PO; +PANT40TA54 PO; -SUPER B PO; +TADA20TA PO; +UBID100C16 PO; +VITA-268 PO
[2021-08-24 11:14] LABS: BASOPHILS % (AUTO) 0.5 % (0-1); EOSINOPHILS # (AUTO) 0.4 X10'3 (0-0.9); LYMPHOCYTES # (AUTO) 1.9 X10'3 (1.1-4.8); LYMPHOCYTES % (AUTO) 24.8 % (21-51); MEAN CORPUSCULAR HEMOGLOBIN 29.5 PG (27.0-31.0); MEAN CORPUSCULAR HGB CONC 32.5 g/dL (33.0-36.5); MEAN CORPUSCULAR VOLUME 90.8 FL (78-98); MEAN PLATELET VOLUME 8.6 FL (7.4-10.4); MONOCYTES # (AUTO) 0.7 X10'3 (0-0.9); MONOCYTES % (AUTO) 9.5 % (2-12); NEUTROPHILS # (AUTO) 4.7 X10'3 (1.8-7.7); NEUTROPHILS % (AUTO) 60.2 % (42-75); PRE OP HEMATOCRIT 39.7 % (42.0-52.0); PRE OP HEMOGLOBIN 12.9 g/dL (14.0-17.9); PRE OP PLATELET COUNT 208 X10'3 (140-440); RED BLOOD COUNT 4.37 X10'6 (4.70-6.10); RED CELL DISTRIBUTION WIDTH 14.6 % (11.5-14.5)
[2021-08-24 11:27] LABS: PRE OP INR 1.1 INR; PRE OP PROTIME 11.7 SECONDS (9.0-12.0)
[2021-08-24 11:31] LABS: ALBUMIN 3.9 G/DL (3.4-5.0); ALBUMIN/GLOBULIN RATIO 1.1 (1.1-1.5); ALKALINE PHOSPHATASE 86 IU/L (46-116); BLOOD UREA NITROGEN 28 MG/DL (7-18); BUN/CREATININE RATIO 19.3 (5.4-32.0); CALCIUM 9.3 MG/DL (8.5-10.1); CHLORIDE 108 MMOL/L (99-107); CREATININE 1.45 MG/DL (0.60-1.10); PRE OP ALT 33 U/L (30-65); PRE OP ANION GAP 10 (8-16); PRE OP AST 22 U/L (10-37); PRE OP BILIRUB, TOTAL 0.4 MG/DL (0.0-1.0); PRE OP GLUCOSE 72 MG/DL (70-104); PRE OP POTASSIUM 5.6 MMOL/L (3.4-5.1); PRE OP SODIUM 139 MMOL/L (135-145); TOTAL CARBON DIOXIDE 21.1 MMOL/L (24-32); TOTAL PROTEIN 7.4 G/DL (6.4-8.2); eGFR 48 ML/MIN
[2021-08-29] MEDS ORDERED: tranexamic acid inj. 1,000 MG in 0.7% saline 100 ML PMX IV ONE (05:00)
[2021-08-29] MEDS ORDERED: ringers solution, lacted 1,000 ML IV SCH (05:00)
[2021-08-29] MEDS ORDERED: famotidine 20mg tablet PO ONE (05:30)
[2021-08-29] MEDS ORDERED: vancomycin 1,500 MG in NS 300ml IV soln IV ONE (05:30)
[2021-08-29] MEDS ORDERED: DOCUMENT DATE & TIME OF BETA-BLOCKER PO ONE (05:30)
[2021-08-29] MEDS ORDERED: cefazolin/dext.iso 2gm/50ml IV ONE (05:30)
== END 2021-08-24 23:59 | disposition home or self-care (01) ==
LOC: PRE-OP 09:18 → EDSTATUS 08-29 10:30
PROVIDERS: ATTEND Orthopaedic Surgery
DX: Z01.812 Encounter for preprocedural laboratory examination (principal); M17.12 Unilateral primary osteoarthritis, left knee; Z20.822 Contact with and (suspected) exposure to COVID-19; E11.9 Type 2 diabetes mellitus without complications; Z79.01 Long term (current) use of anticoagulants
CPT/HCPCS: 36415; 80053; 83036; 85025; 85610; 85730; 86885; 86900; 86901; 87081; U0003; U0005; 86920; J3370; J3490; J7040; J7120

== ENCOUNTER 2021-11-28 10:53 | Emergency (ER) | payer MEDICARE, OTHER ==
[~2021-11-28 10:53] MED LIST changes: -GABA300C PO; -PANT40TA54 PO; -TADA20TA PO; -UBID100C16 PO
== END 2021-11-28 13:10 | disposition left against medical advice (07) ==
LOC: ER 10:53
DX: R07.81 Pleurodynia (principal); Z53.21 Procedure and treatment not carried out due to patient leaving prior to being seen by health care provider

== ENCOUNTER 2021-12-26 12:43 | Emergency (ER) | payer MEDICARE, OTHER ==
[~2021-12-26] VITALS: Ht 175.3 cm; Wt 104.5 kg
[2021-12-26 12:47] VITALS: BP 133/50
[2021-12-26 15:11] LABS: BASOPHILS % (AUTO) 0.2 % (0-1); EOSINOPHILS % (AUTO) 0 % (0-6); HEMATOCRIT 42.8 % (42.0-52.0); HEMOGLOBIN 13.8 g/dl (14.0-17.9); LYMPHOCYTES # (AUTO) 1.1 X10'3 (1.1-4.8); MEAN CORPUSCULAR HEMOGLOBIN 27.9 PG (27.0-31.0); MEAN CORPUSCULAR HGB CONC 32.3 g/dL (33.0-36.5); MEAN CORPUSCULAR VOLUME 86.5 FL (78-98); MEAN PLATELET VOLUME 9.1 FL (7.4-10.4); MONOCYTES # (AUTO) 0.4 X10'3 (0-0.9); NEUTROPHILS # (AUTO) 7.3 X10'3 (1.8-7.7); NEUTROPHILS % (AUTO) 82.8 % (42-75); PLATELET COUNT 256 X10'3 (140-440); RED BLOOD COUNT 4.95 X10'6 (4.70-6.10); RED CELL DISTRIBUTION WIDTH 16.2 % (11.5-14.5); WHITE BLOOD COUNT 8.8 X10'3 (4.5-11.0)
[2021-12-26 15:26] LABS: ALANINE AMINOTRANSFERASE 14 U/L (12-78); ALBUMIN 3.8 G/DL (3.4-5.0); ALKALINE PHOSPHATASE 80 IU/L (46-116); ANION GAP 13 (8-16); ASPARTATE AMINO TRANSFERASE 16 U/L (10-37); BILIRUBIN,TOTAL 0.4 MG/DL (0.1-1.0); BLOOD UREA NITROGEN 47 MG/DL (7-18); BUN/CREATININE RATIO 23.7 (5.4-32.0); CALCIUM 8.6 MG/DL (8.5-10.1); CHLORIDE 106 MMOL/L (99-107); CREATININE 1.98 MG/DL (0.60-1.10); GLUCOSE 288 MG/DL (70-104); POTASSIUM 5.7 MMOL/L (3.5-5.1); SODIUM 140 MMOL/L (135-145); TOTAL PROTEIN 7.7 G/DL (6.4-8.2); eGFR 33 ML/MIN
[2021-12-26] MEDS ORDERED: AZI25OT PO (15:45)
[2021-12-26] MEDS ORDERED: ALBU8HFA PO (15:45)
[2021-12-26] MEDS ORDERED: sodium polystyrene sulfonate 15gm/60ml oral suspension PO ONE (15:45)
== END 2021-12-26 16:28 | disposition home or self-care (01) ==
LOC: ER 12:44
DX: U07.1 COVID-19 (principal); R05.9 Cough, unspecified; E87.5 Hyperkalemia; I25.10 Atherosclerotic heart disease of native coronary artery without angina pectoris; I10 Essential (primary) hypertension; E11.9 Type 2 diabetes mellitus without complications; Z79.82 Long term (current) use of aspirin; Z79.2 Long term (current) use of antibiotics; Z79.899 Other long term (current) drug therapy
CPT/HCPCS: 36415; 71045; 80053; 83605; 84145; 85025; 87040; 87077; 99284

== ENCOUNTER 2022-09-21 08:00 | Outpatient (CLI) | payer MEDICARE, OTHER ==
[~2022-09-21] VITALS: Ht 175.3 cm; Wt 104.3 kg
[2022-09-21] MEDS ORDERED: DAPA10TA PO (09:45)
[2022-09-21] MEDS ORDERED: RIVA15TA PO (09:45)
[2022-09-21] MEDS ORDERED: CARV-50 PO (09:45)
[2022-09-21] MEDS ORDERED: LACT1CAP65 PO (09:47)
[2022-09-21 09:53] LABS: BASOPHILS % (AUTO) 0.5 % (0-1); EOSINOPHILS # (AUTO) 0.4 X10'3 (0-0.9); EOSINOPHILS % (AUTO) 5.4 % (0-6); LYMPHOCYTES # (AUTO) 1.8 X10'3 (1.1-4.8); LYMPHOCYTES % (AUTO) 24.3 % (21-51); MEAN CORPUSCULAR HEMOGLOBIN 27.1 PG (27.0-31.0); MEAN CORPUSCULAR HGB CONC 31.8 g/dL (33.0-36.5); MEAN CORPUSCULAR VOLUME 85.3 FL (78-98); MEAN PLATELET VOLUME 8.7 FL (7.4-10.4); MONOCYTES # (AUTO) 0.7 X10'3 (0-0.9); MONOCYTES % (AUTO) 9.9 % (2-12); NEUTROPHILS # (AUTO) 4.5 X10'3 (1.8-7.7); NEUTROPHILS % (AUTO) 59.9 % (42-75); PRE OP HEMATOCRIT 43.7 % (42.0-52.0); PRE OP HEMOGLOBIN 13.9 g/dL (14.0-17.9); PRE OP PLATELET COUNT 196 X10'3 (140-440); RED BLOOD COUNT 5.12 X10'6 (4.70-6.10); RED CELL DISTRIBUTION WIDTH 17.2 % (11.5-14.5)
[2022-09-21 10:19] LABS: ALBUMIN 3.6 G/DL (3.4-5.0); ALKALINE PHOSPHATASE 77 IU/L (46-116); BLOOD UREA NITROGEN 39 MG/DL (7-18); BUN/CREATININE RATIO 22.9 (10.0-20.0); CALCIUM 8.8 MG/DL (8.5-10.1); CHLORIDE 107 MMOL/L (99-107); PRE OP ALT 21 U/L (30-65); PRE OP ANION GAP 11 (8-16); PRE OP AST 19 U/L (10-37); PRE OP BILIRUB, TOTAL 0.4 MG/DL (0.0-1.0); PRE OP GLUCOSE 128 MG/DL (70-104); PRE OP POTASSIUM 5.6 MMOL/L (3.4-5.1); PRE OP SODIUM 141 MMOL/L (135-145); TOTAL CARBON DIOXIDE 23.2 MMOL/L (24-32); TOTAL PROTEIN 7.1 G/DL (6.4-8.2); eGFR 40 ML/MIN
[2022-09-21 10:32] LABS: HEMOGLOBIN A1C 6.7 % (4.5-6.2)
[2022-09-27] MEDS ORDERED: ringers solution, lacted 1,000 ML IV SCH (05:00)
[2022-09-27] MEDS ORDERED: cefazolin 2gm/D5W 100mL 100 ML IV ONE (05:30)
[2022-09-27] MEDS ORDERED: famotidine 20mg tablet PO ONE (05:30)
[2022-09-27] MEDS ORDERED: tranexamic acid inj. 1,000 MG in normal saline IV soln 100ML IV ONE (05:30)
[2022-09-27] MEDS ORDERED: vancomycin 1,500 MG in NS 300ml IV soln IV ONE (05:30)
== END 2022-09-21 23:59 | disposition home or self-care (01) ==
LOC: RAD 08:00 → EDSTATUS 09-27 07:30 → RAD 09-27 09:53
PROVIDERS: ATTEND Orthopaedic Surgery
DX: Z01.818 Encounter for other preprocedural examination (principal); M17.12 Unilateral primary osteoarthritis, left knee
CPT/HCPCS: 36415; 80053; 83036; 85025; 87081; J0690; J3370; J3490; J7120

== ENCOUNTER 2022-10-18 10:55 | Inpatient (IN) | payer MEDICARE, OTHER ==
[2022-10-18] VITALS (26 sets, daily range): BP systolic 142–185; BP diastolic 63–91
[~2022-10-18] VITALS: Ht 162.6 cm; Wt 107.0 kg
[2022-10-18] MEDS: normal saline 1000ml 500 ML IV SCH (05:30)
[~2022-10-18 10:55] MED LIST changes: -APIX5TAB3 PO; +ASPI-1265 PO; -ASPI81TA47 PO; +CARV-50 PO; -CHOL1POW2 PO; +CYAN50009 PO; -CYAN500T71 PO; +DAPA10TA PO; -DILT-88 PO; +DOCUMENT DATE & TIME OF BETA-BLOCKER PO ONE; -FLAX10007 PO; -HYDR-4069 PO; +LACT1CAP65 PO; +RIVA15TA PO; +ROPIVAcaine 0.5% (5mg/ml) 30ml vial ONE; -VITA-268 PO; -VITA400T10 PO; +cefazolin 2gm/D5W 100mL 100 ML IV ONE; +epiNEPHrine 1 mg/ml inj ONE; +famotidine 20mg tablet PO ONE; +fentaNYL/PF 50MCG/1 ML 2ML syringe ONE; +ketorolac trometh. 30mg/ml inj. ONE; +midazolam 1 mg/ML 2ml injection ONE; +tranexamic acid inj. 1,000 MG in normal saline IV soln 100ML IV ONE; +vancomycin 1,500 MG in NS 300ml IV soln IV ONE
[2022-10-18 11:47] LABS: BASOPHILS # (AUTO) 0.1 X10'3 (0-0.2); BASOPHILS % (AUTO) 0.7 % (0-1); EOSINOPHILS # (AUTO) 0.3 X10'3 (0-0.9); EOSINOPHILS % (AUTO) 4.4 % (0-6); LYMPHOCYTES % (AUTO) 26.5 % (21-51); MEAN CORPUSCULAR HEMOGLOBIN 27.5 PG (27.0-31.0); MEAN CORPUSCULAR HGB CONC 32.3 g/dL (33.0-36.5); MEAN CORPUSCULAR VOLUME 85.1 FL (78-98); MEAN PLATELET VOLUME 8.7 FL (7.4-10.4); MONOCYTES # (AUTO) 0.8 X10'3 (0-0.9); MONOCYTES % (AUTO) 10.3 % (2-12); NEUTROPHILS # (AUTO) 4.3 X10'3 (1.8-7.7); NEUTROPHILS % (AUTO) 58.1 % (42-75); PRE OP HEMOGLOBIN 14.5 g/dL (14.0-17.9); PRE OP PLATELET COUNT 220 X10'3 (140-440); RED BLOOD COUNT 5.28 X10'6 (4.70-6.10); RED CELL DISTRIBUTION WIDTH 16.4 % (11.5-14.5)
[2022-10-18 12:01] LABS: ALBUMIN 3.9 G/DL (3.4-5.0); ALBUMIN/GLOBULIN RATIO 1.2 (1.1-1.5); ALKALINE PHOSPHATASE 93 IU/L (46-116); BLOOD UREA NITROGEN 43 MG/DL (7-18); BUN/CREATININE RATIO 24.2 (10.0-20.0); CHLORIDE 107 MMOL/L (99-107); CREATININE 1.78 MG/DL (0.60-1.10); PRE OP ALT 31 U/L (30-65); PRE OP ANION GAP 10 (8-16); PRE OP AST 23 U/L (10-37); PRE OP BILIRUB, TOTAL 0.4 MG/DL (0.0-1.0); PRE OP GLUCOSE 150 MG/DL (70-104); PRE OP POTASSIUM 5.5 MMOL/L (3.4-5.1); PRE OP SODIUM 140 MMOL/L (135-145); TOTAL CARBON DIOXIDE 23.4 MMOL/L (24-32); TOTAL PROTEIN 7.2 G/DL (6.4-8.2); eGFR 38 ML/MIN
--- NOTE | 2022-10-18 13:25 | NUR ---
PULSES MARKED CSM INTACT VIDEO WATCHED NO OINTMENT ORDERED
[2022-10-18] MEDS ORDERED: fentaNYL/PF 50MCG/1 ML 2ML syringe ONE (14:11)
[2022-10-18] MEDS ORDERED: MIDAZolam 1mg/ml 10ml vial ONE (14:11)
[2022-10-18] MEDS ORDERED: propofol inj 20 ML IV ONE (14:25)
[2022-10-18] MEDS ORDERED: morphine 10mg/ml inj. ONE (14:50)
[2022-10-18] MEDS ORDERED: BUPIVAcaine/PF 7.5mg/ml (0.75%) 10ml vial ONE (15:52)
[2022-10-18] MEDS ORDERED: ROPIVAcaine 0.5% (5mg/ml) 30ml vial ONE (15:52)
[2022-10-18] MEDS ORDERED: meperidine/PF 25mg/ml syringe IV PRN ×3 (16:15)
[2022-10-18] MEDS ORDERED: morphine 2 MG/ML inj. syringe IV PRN (16:15)
[2022-10-18] MEDS ORDERED: proCHLORperazine 10 MG/2 ml inj IV PRN (16:15)
[2022-10-18] MEDS ORDERED: ROPIVAcaine 0.2% (10 MG/5 ML) BOLUS INJECTION ADDCANAL PRN (16:15)
[2022-10-18] MEDS ORDERED: morphine 4 MG/ML inj SYRINge IV PRN (16:15)
[2022-10-18] MEDS ORDERED: ringers solution, lacted 1,000 ML IV SCH (16:15)
[2022-10-18] MEDS ORDERED: ondansetron/PF 4mg/2ml inj IV PRN ×2 (16:15→16:45)
[2022-10-18] MEDS ORDERED: ROPIVAcaine 0.2%/PF PUMP/bolus 545 ML ADDCANAL SCH (16:31)
[2022-10-18] MEDS ORDERED: acetaminophen 325mg tablet PO PRN (16:45)
[2022-10-18] MEDS ORDERED: bisacodyl 10mg suppository rectal RC PRN (16:45)
[2022-10-18] MEDS ORDERED: naloxone 0.4 mg/ml inj IV PRN (16:45)
[2022-10-18] MEDS ORDERED: magnesium hydroxide 30ml (MOM) UD suspension PO PRN (16:45)
[2022-10-18] MEDS ORDERED: diphenhydrAMINE 25mg capsule PO PRN ×2 (16:45)
--- NOTE | 2022-10-18 16:59 | NUR ---
Received from OR via HOSPITAL BED TO RR 7, accompanied by Anesthesiologist DR MESSINA and report given by Anesthesiolgist. PT PRESENTS WITH 20G LEFT WRIST, LEFT KNEE WRAP WITH POWDER PACK AND ON-Q READY, SPO2 98% ROOM AIR, LR RUNNING AT 100MLS/HR, VSS. Addendum: 10/18/22 at 1719 by Oliva Moore RN, RN Amended: Links added.
--- NOTE | 2022-10-18 17:19 | NUR ---
X-RAY AT BEDSIDE
--- NOTE | 2022-10-18 18:00 | NUR ---
Patient in room ORTHO 4014. I have received report from Oliva WILKES and had the opportunity to ask questions and assume patient care.
[2022-10-18] MEDS ORDERED: HYDROcodone/acetaminophen 5mg/325mg tablet PO PRN (18:55)
--- NOTE | 2022-10-18 19:10 | NUR ---
PT'S ERIC TOOK PT'S BELONGINGS HOME.
--- NOTE | 2022-10-18 19:19 | NUR ---
PATIENT HAS MET ALL CRITERIA FOR TRANSFER TO THE SURGICAL/[facility]FA[facility]/PCU/ORTHO/ICU FLOOR. VSS. DRESSINGS INTACT. BED LOW, CALL LIGHT PRESENT AND 2 RAILS UP. RN PRESENT TO ACCEPT CARE OF PATIENT AND REPORT HAS BEEN CALLED. ALL QUESTIONS ANSWERED TO ACCEPTING RN. Addendum: 10/18/22 at 1944 by Oliva Moore RN RN Amended: Links added.
[2022-10-18] MEDS: HYDROcodone/acetaminophen 10/325mg tab PO PRN (20:54)
[2022-10-18] MEDS: sennosides 8.6mg tablet PO SCH (20:55)
[2022-10-18] MEDS: atorvastatin 10mg tablet PO SCH (20:55)
[2022-10-18] MEDS: cyanocobalamin 500mcg tablet PO SCH (20:55)
[2022-10-18] MEDS: carVEDilol 12.5mg tablet PO SCH (20:56)
[2022-10-18] MEDS: rivaroxaban 15mg tablet PO SCH (21:38)
[2022-10-18] MEDS: glipizide 5mg tablet PO SCH (21:47)
[2022-10-19] VITALS (8 sets, daily range): BP systolic 138–191; BP diastolic 57–70
[2022-10-19] MEDS: HYDROcodone/acetaminophen 10/325mg tab PO PRN ×5 (00:42→22:24)
--- NOTE | 2022-10-19 06:52 | NUR ---
Patient in room ORTHO 4014. I have received report from Lizette WILKES and had the opportunity to ask questions and assume patient care.
[2022-10-19] MEDS ORDERED: metFORMIN 500mg tablet PO SCH (07:30)
--- NOTE | 2022-10-19 08:23 | NUR ---
Joint surgery consult: Pt s/p L knee surgery this admit per EMR. Due to staffing [facility] unable to see pt for high protein ed at this time; written high protein ed mailed to pt home address provided in EMR. If pt w/ prolonged stay post-op would benefit from verbal ed this admit. Addendum: 10/19/22 at [address] Amended: Links added.
[2022-10-19] MEDS: aspirin 325mg tablet PO SCH (08:46)
[2022-10-19] MEDS: lactobacillus rhamnosus 10,000 MMU CELLS/CAPSULE PO SCH (08:46)
[2022-10-19] MEDS: oxybutynin 5mg tablet PO SCH ×2 (08:47→20:24)
[2022-10-19] MEDS: DAPAGLIFLOZIN 10MG TABLET PO SCH (08:47)
[2022-10-19] MEDS: carVEDilol 12.5mg tablet PO SCH ×2 (08:48→20:24)
[2022-10-19] MEDS: cyanocobalamin 500mcg tablet PO SCH ×2 (08:48→20:40)
[2022-10-19] MEDS: normal saline 1000ml 500 ML IV SCH (08:53)
--- NOTE | 2022-10-19 18:17 | NUR ---
Problems reprioritized. Patient report given, questions answered & plan of care reviewed with Celeste WILKES.
--- NOTE | 2022-10-19 19:06 | NUR ---
Student documentation: I have reviewed and agree with all interventions, assessments performed and documented by Ivana BOSWELL. .
[2022-10-19] MEDS: glipizide 5mg tablet PO SCH (20:23)
[2022-10-19] MEDS: rivaroxaban 15mg tablet PO SCH (20:24)
[2022-10-19] MEDS: atorvastatin 10mg tablet PO SCH (20:24)
[2022-10-19] MEDS: sennosides 8.6mg tablet PO SCH (20:41)
[2022-10-20] MEDS: HYDROcodone/acetaminophen 10/325mg tab PO PRN (02:49)
[2022-10-20] MEDS: carVEDilol 12.5mg tablet PO SCH (05:31)
--- NOTE | 2022-10-20 05:33 | NUR ---
Systolic blood pressure of over 200 for this AM VS. Order received to give pts am dose of coreg early. Knee powder pack was changed and pt encouraged to push onQ. Addendum: 10/20/22 at 0538 by Celeste Talbot RN Amended: Links added.
[2022-10-20 06:00] VITALS: BP 214/81
[2022-10-20] MEDS ORDERED: oxyCODONE/APAP 10/325mg tablet PO PRN (06:45)
[2022-10-20] MEDS ORDERED: hydrALAZINE 20mg/ml inj. IV ONE (06:45)
--- NOTE | 2022-10-20 06:45 | NUR ---
PT noted that patients BP was 218/84 with automatic machine. Manual done 208/118. MD notified and received orders for one time BP med and increased pain med. Will continue to monitor.
[2022-10-20] MEDS: cyanocobalamin 500mcg tablet PO SCH (08:00)
[2022-10-20] MEDS: normal saline 1000ml 500 ML IV SCH (08:46)
[2022-10-20] MEDS: lactobacillus rhamnosus 10,000 MMU CELLS/CAPSULE PO SCH (08:47)
[2022-10-20] MEDS: aspirin 325mg tablet PO SCH (08:47)
[2022-10-20] MEDS: DAPAGLIFLOZIN 10MG TABLET PO SCH (08:47)
[2022-10-20] MEDS: oxybutynin 5mg tablet PO SCH (08:48)
[2022-10-20 10:00] VITALS: BP 164/62
--- NOTE | 2022-10-20 12:03 | NUR ---
Patient stable and appropriate for discharge. All instructions gone over with both patient and . IV removed canula intact. Patient was assisted with dressing and taken down to lobby via wheelchair and taken home by in private vehicle. Addendum: 10/20/22 at 1205 by Katerina Moore LVN, LVN New OnQ ball applied to patient before discharge, OnQ education sent home with patient.
--- NOTE | 2022-10-20 12:38 | NUR ---
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
[2022-10-24 09:36] LABS: ISTAT CREATININE 1.8 mg/dL (0.8-1.3); ISTAT IONIZED CALCIUM 1.25 mmol/L (1.03-1.32); POC BUN/CREATININE RATIO 23.3 (5.4-32.0)
[2022-10-24 09:37] LABS: ISTAT HGB 15.6 g/dl (14.0-17.9)
[2022-10-24 09:41] LABS: ISTAT K 5.5 mmol/L (3.5-5.1)
== END 2022-10-20 12:00 | disposition home or self-care (01) | DRG 470 ==
LOC: PAS IN 10:55 → ORTHO 4S 13:45
PROVIDERS: ADMIT Orthopaedic Surgery; ATTEND Orthopaedic Surgery
PROC: 3E0T3BZ Introduction of Anesthetic Agent into Peripheral Nerves and Plexi, Percutaneous Approach (ICD-10-PCS; 2022-10-18)
PROC: 3E0T33Z Introduction of Anti-inflammatory into Peripheral Nerves and Plexi, Percutaneous Approach (ICD-10-PCS; 2022-10-18)
PROC: 0SRD0J9 Replacement of Left Knee Joint with Synthetic Substitute, Cemented, Open Approach (ICD-10-PCS; principal; 2022-10-18 13:57)
DX: M17.12 Unilateral primary osteoarthritis, left knee (principal); R55 Syncope and collapse
CPT/HCPCS: 36415; 73560; 80047; 80053; 82948; 85025; 87081; 97110; 97116; 97161; 97530; A4215; A6253; A6446; A6449; A7000; C1713; C1758; C1776; C9250; G0378; J0171; J0360; J0690; J1885; J2250; J2274; J2704; J2795; J3010; J3370; J3490; J7030; J7120

== ENCOUNTER 2023-06-20 12:37 | Inpatient (IN) | payer MEDICARE, OTHER ==
[~2023-06-20] VITALS: Ht 175.3 cm; Wt 106.7 kg
[~2023-06-20 12:37] MED LIST changes: -ASPI-1265 PO; -DOCUMENT DATE & TIME OF BETA-BLOCKER PO ONE; -ROPIVAcaine 0.5% (5mg/ml) 30ml vial ONE; -cefazolin 2gm/D5W 100mL 100 ML IV ONE; -epiNEPHrine 1 mg/ml inj ONE; -famotidine 20mg tablet PO ONE; -fentaNYL/PF 50MCG/1 ML 2ML syringe ONE; -ketorolac trometh. 30mg/ml inj. ONE; -midazolam 1 mg/ML 2ml injection ONE; -tranexamic acid inj. 1,000 MG in normal saline IV soln 100ML IV ONE; -vancomycin 1,500 MG in NS 300ml IV soln IV ONE
[2023-06-20 13:05] LABS: BASOPHILS # (AUTO) 0.1 X10'3 (0-0.2); BASOPHILS % (AUTO) 0.9 % (0-1); EOSINOPHILS # (AUTO) 0.4 X10'3 (0-0.9); EOSINOPHILS % (AUTO) 4.6 % (0-6); HEMATOCRIT 46.2 % (42.0-52.0); LYMPHOCYTES # (AUTO) 2.7 X10'3 (1.1-4.8); LYMPHOCYTES % (AUTO) 33.1 % (21-51); MEAN CORPUSCULAR HEMOGLOBIN 29.2 PG (27.0-31.0); MEAN CORPUSCULAR HGB CONC 32.4 g/dL (33.0-36.5); MEAN CORPUSCULAR VOLUME 90.2 FL (78-98); MEAN PLATELET VOLUME 8.5 FL (7.4-10.4); MONOCYTES # (AUTO) 0.8 X10'3 (0-0.9); MONOCYTES % (AUTO) 9.7 % (2-12); NEUTROPHILS # (AUTO) 4.1 X10'3 (1.8-7.7); NEUTROPHILS % (AUTO) 51.7 % (42-75); PLATELET COUNT 211 X10'3 (140-440); RED BLOOD COUNT 5.12 X10'6 (4.70-6.10); RED CELL DISTRIBUTION WIDTH 15.1 % (11.5-14.5)
[2023-06-20 14:48] LABS: ALANINE AMINOTRANSFERASE 35 U/L (12-78); ALBUMIN 3.3 G/DL (3.4-5.0); ALBUMIN/GLOBULIN RATIO 0.9 (1.1-1.5); ALKALINE PHOSPHATASE 70 IU/L (46-116); ANION GAP 8 (8-16); ASPARTATE AMINO TRANSFERASE 25 U/L (10-37); BILIRUBIN,TOTAL 0.2 MG/DL (0.1-1.0); BLOOD UREA NITROGEN 36 MG/DL (7-18); BUN/CREATININE RATIO 21.7 (10.0-20.0); CALCIUM 8.3 MG/DL (8.5-10.1); CHLORIDE 107 MMOL/L (99-107); CREATININE 1.66 MG/DL (0.60-1.10); GLUCOSE 162 MG/DL (70-104); POTASSIUM 5.1 MMOL/L (3.5-5.1); PRO BRAIN NATRIURETIC PEPTIDE 1040 PG/ML (0-125); SODIUM 137 MMOL/L (135-145); TOTAL CARBON DIOXIDE 21.9 MMOL/L (24-32); TOTAL PROTEIN 6.8 G/DL (6.4-8.2); eCRCL 40 ML/MIN; eGFR 41 ML/MIN
[2023-06-20] MEDS ORDERED: potassium Cl 40MEQ/1/2NS 520ml 520 ML IV PRN (15:05)
[2023-06-20] MEDS ORDERED: potassium Cl 20 mEq SR tablet PO PRN ×2 (15:05)
[2023-06-20] MEDS ORDERED: morphine 2 MG/ML inj. syringe IV PRN ×2 (15:05)
[2023-06-20] MEDS ORDERED: HYDROcodone/acetaminophen 5mg/325mg tablet PO PRN (15:05)
[2023-06-20] MEDS ORDERED: magnesium 4gm in 100ml NS 100 ML IV PRN (15:05)
[2023-06-20] MEDS ORDERED: acetaminophen 325mg tablet PO PRN ×2 (15:05)
[2023-06-20] MEDS ORDERED: ondansetron/PF 4mg/2ml inj IV PRN (15:05)
[2023-06-20] MEDS ORDERED: HYDROcodone/acetaminophen 10/325mg tab PO PRN (15:05)
[2023-06-20] MEDS ORDERED: magnesium 2GM in 50ml NS 50 ML IV PRN (15:05)
[2023-06-20] MEDS ORDERED: magnesium Cl slow-release 64mg tablet PO PRN (15:05)
[2023-06-20] MEDS ORDERED: SULF-14 PO (15:06)
[2023-06-20] MEDS: normal saline 1000ml 1,000 ML IV SCH (15:31)
[2023-06-20] MEDS: heparin, porcine 5000 units/ml vial SQ SCH (20:55)
[2023-06-20] MEDS ORDERED: temazepam 15mg capsule PO PRN (21:00)
[2023-06-20 23:00] VITALS: BP 174/78; PULSE 60; RESP 16; TEMP 98; O2SAT 97
[2023-06-20] MEDS ORDERED: dextrose 50%-water 50ml dispensing syringe IV PRN ×2 (23:45)
[2023-06-20] MEDS: MESSAGE TO PHARMACY PO ONE (23:45)
[2023-06-20] MEDS ORDERED: glucagon, human recombinant 1mg kit SUBCUT PRN (23:45)
[2023-06-20] MEDS ORDERED: DEXTROSE 15 GM of carb/4 tabs (each vial/BOTTLE has 4 tablets) PO PRN ×2 (23:45)
[2023-06-20] MEDS ORDERED: insulin Lispro (HumaLOG) vial - multi-dose SQ SCH (23:45)
[2023-06-21] VITALS (11 sets, daily range): BP systolic 124–165; BP diastolic 57–81; PULSE 60–70; RESP 13–18; TEMP 97.2–97.9; O2SAT 94–100
[2023-06-21] MEDS: carVEDilol 12.5mg tablet PO SCH (00:28)
[2023-06-21 06:48] LABS: BASOPHILS % (AUTO) 0.5 % (0-1); EOSINOPHILS # (AUTO) 0.3 X10'3 (0-0.9); EOSINOPHILS % (AUTO) 4.8 % (0-6); HEMATOCRIT 42.6 % (42.0-52.0); MEAN CORPUSCULAR HEMOGLOBIN 29.3 PG (27.0-31.0); MEAN CORPUSCULAR HGB CONC 32.8 g/dL (33.0-36.5); MEAN CORPUSCULAR VOLUME 89.3 FL (78-98); MEAN PLATELET VOLUME 8.1 FL (7.4-10.4); MONOCYTES # (AUTO) 0.6 X10'3 (0-0.9); MONOCYTES % (AUTO) 9.6 % (2-12); NEUTROPHILS # (AUTO) 3.6 X10'3 (1.8-7.7); NEUTROPHILS % (AUTO) 55.1 % (42-75); PLATELET COUNT 191 X10'3 (140-440); RED BLOOD COUNT 4.77 X10'6 (4.70-6.10); RED CELL DISTRIBUTION WIDTH 15.1 % (11.5-14.5); WHITE BLOOD COUNT 6.5 X10'3 (4.5-11.0)
[2023-06-21 07:15] LABS: ALANINE AMINOTRANSFERASE 28 U/L (12-78); ALBUMIN 3.1 G/DL (3.4-5.0); ALBUMIN/GLOBULIN RATIO 0.9 (1.1-1.5); ALKALINE PHOSPHATASE 66 IU/L (46-116); ANION GAP 10 (8-16); ASPARTATE AMINO TRANSFERASE 19 U/L (10-37); BILIRUBIN,TOTAL 0.4 MG/DL (0.1-1.0); BLOOD UREA NITROGEN 30 MG/DL (7-18); BUN/CREATININE RATIO 20.7 (10.0-20.0); CALCIUM 8.6 MG/DL (8.5-10.1); CHLORIDE 109 MMOL/L (99-107); CREATININE 1.45 MG/DL (0.60-1.10); GLUCOSE 105 MG/DL (70-104); POTASSIUM 5.1 MMOL/L (3.5-5.1); SODIUM 141 MMOL/L (135-145); TOTAL CARBON DIOXIDE 22.4 MMOL/L (24-32); TOTAL PROTEIN 6.4 G/DL (6.4-8.2); eCRCL 45 ML/MIN; eGFR 48 ML/MIN
[2023-06-21 07:21] LABS: HEMOGLOBIN A1C 6.7 % (4.5-6.2)
[2023-06-21] MEDS: regadenoson 0.4mg/5ml syringe IV ONE (10:02)
[2023-06-21] MEDS ORDERED: isosorbide mononitrate 30mg tab.SR.24H PO SCH (15:15)
[2023-06-21] MEDS ORDERED: ISOS20TA15 PO (15:24)
[2023-06-21] MEDS ORDERED: insulin glargine (Lantus) pen - multi-dose SQ SCH (21:00)
[2023-06-22] MEDS ORDERED: carVEDilol 12.5mg tablet PO SCH
== END 2023-06-21 16:48 | disposition home or self-care (01) | DRG 291 ==
LOC: ER 12:37 → ED HOLD 15:06 → PCU 3S 23:10
PROVIDERS: ADMIT Internal Medicine; ATTEND Internal Medicine
PROC: 4A02XM4 Measurement of Cardiac Total Activity, External Approach (ICD-10-PCS; principal; 2023-06-21)
PROC: 3E073KZ Introduction of Other Diagnostic Substance into Coronary Artery, Percutaneous Approach (ICD-10-PCS; 2023-06-21)
DX: I13.0 Hypertensive heart and chronic kidney disease with heart failure and stage 1 through stage 4 chronic kidney disease, or unspecified chronic kidney disease (principal); I50.23 Acute on chronic systolic (congestive) heart failure; I24.89 Other forms of acute ischemic heart disease; I25.119 Atherosclerotic heart disease of native coronary artery with unspecified angina pectoris; N18.9 Chronic kidney disease, unspecified; E11.22 Type 2 diabetes mellitus with diabetic chronic kidney disease; I25.5 Ischemic cardiomyopathy; E11.51 Type 2 diabetes mellitus with diabetic peripheral angiopathy without gangrene; E87.5 Hyperkalemia; I48.0 Paroxysmal atrial fibrillation; Z95.1 Presence of aortocoronary bypass graft; Z79.84 Long term (current) use of oral hypoglycemic drugs; Z79.899 Other long term (current) drug therapy; Z79.01 Long term (current) use of anticoagulants; Z95.810 Presence of automatic (implantable) cardiac defibrillator; Z82.49 Family history of ischemic heart disease and other diseases of the circulatory system
CPT/HCPCS: 36415; 71045; 78452; 80053; 82948; 83036; 83880; 84484; 85025; 87081; 93005; 93017; 93306; 99281; 99285; A9500; G0378; J1644; J1815; J2785; J7030

== ENCOUNTER 2023-09-15 09:15 | Emergency (ER) | payer MEDICARE, OTHER ==
[~2023-09-15] VITALS: Ht 175.3 cm; Wt 104.0 kg
[~2023-09-15 09:15] MED LIST changes: +ISOS20TA15 PO
[2023-09-15 09:20] VITALS: TEMP 97.7
[2023-09-15 10:20] LABS: BILIRUBIN,URINE NEGATIVE (Neg); CLARITY,URINE CLEAR (Clear); COLOR,URINE YELLOW (Yellow); GLUCOSE, URINE 500 mg/dl (Neg); KETONES,URINE NEGATIVE (Neg); LEUKOCYTE ESTERASE ,URINE NEGATIVE (Neg); NITRITES, URINE NEGATIVE (Neg); OCCULT BLOOD,URINE NEGATIVE (Neg); PH,URINE 5.5 (4.8-8.0); PROTEIN,URINE 100 mg/dl (Neg); UROBILINOGEN,URINE 0.2 E.U/dL (0.2-1.0)
[2023-09-15 10:25] LABS: UA COLLECTION TYPE VOIDED
[2023-09-15 10:28] LABS: BACTERIA,URINE NONE SEEN /HPF (Neg); RBC,URINE 0-2 /HPF (0-2); WBC,URINE NONE SEEN /HPF (0-4)
[2023-09-15 10:29] LABS: MUCUS STRANDS NONE SEEN /LPF (Neg)
[2023-09-15 10:30] LABS: SQUAMOUS EPITHELIAL CELL,UR FEW /LPF (FEW)
[2023-09-15] MEDS: LIDOcaine 5% patch TP STA (10:48)
[2023-09-15 10:58] VITALS: PULSE 60; RESP 19
[2023-09-15] MEDS: NIFEdipine XL 30mg tablet PO ONE (11:05)
[2023-09-15 12:00] VITALS: BP 173/74; O2SAT 97
== END 2023-09-15 12:04 | disposition home or self-care (01) ==
LOC: ER 09:15
DX: M54.50 Low back pain, unspecified (principal); M51.36 Other intervertebral disc degeneration, lumbar region; R60.0 Localized edema; I25.10 Atherosclerotic heart disease of native coronary artery without angina pectoris; I10 Essential (primary) hypertension; E11.9 Type 2 diabetes mellitus without complications
CPT/HCPCS: 72100; 81001; 99284

== ENCOUNTER 2024-07-29 17:32 | Emergency (ER) | payer MEDICARE, OTHER ==
[~2024-07-29] VITALS: Ht 175.3 cm; Wt 100.0 kg
[~2024-07-29 17:32] MED LIST changes: -GLIP10TA11 PO; +GLIP10TA18 PO; -ISOS20TA15 PO; +[UNRECOGNIZED DRUG - CODE] PO
[2024-07-29 17:43] VITALS: TEMP 98.5
[2024-07-29 18:14] LABS: BASOPHILS % (AUTO) 0.5 % (0-1); EOSINOPHILS # (AUTO) 0.3 X10'3 (0-0.9); EOSINOPHILS % (AUTO) 4.3 % (0-6); HEMATOCRIT 46.3 % (42.0-52.0); HEMOGLOBIN 15.4 g/dl (14.0-17.9); LYMPHOCYTES # (AUTO) 2.3 X10'3 (1.1-4.8); LYMPHOCYTES % (AUTO) 31.2 % (21-51); MEAN CORPUSCULAR HEMOGLOBIN 31.3 PG (27.0-31.0); MEAN CORPUSCULAR HGB CONC 33.3 g/dL (33.0-36.5); MONOCYTES # (AUTO) 0.7 X10'3 (0-0.9); MONOCYTES % (AUTO) 9.5 % (2-12); NEUTROPHILS # (AUTO) 4.1 X10'3 (1.8-7.7); NEUTROPHILS % (AUTO) 54.5 % (42-75); PLATELET COUNT 200 X10'3 (140-440); RED BLOOD COUNT 4.93 X10'6 (4.70-6.10); RED CELL DISTRIBUTION WIDTH 14.3 % (11.5-14.5); WHITE BLOOD COUNT 7.5 X10'3 (4.5-11.0)
[2024-07-29 18:25] LABS: ALANINE AMINOTRANSFERASE 48 U/L (12-78); ALBUMIN 4.1 G/DL (3.4-5.0); ALBUMIN/GLOBULIN RATIO 1.2 (1.1-1.5); ALKALINE PHOSPHATASE 109 IU/L (46-116); ANION GAP 10 (8-16); ASPARTATE AMINO TRANSFERASE 23 U/L (10-37); BILIRUBIN,TOTAL 0.3 MG/DL (0.1-1.0); BLOOD UREA NITROGEN 40 MG/DL (7-18); BUN/CREATININE RATIO 20.8 (10.0-20.0); CALCIUM 9.1 MG/DL (8.5-10.1); CHLORIDE 107 MMOL/L (99-107); CREATININE 1.92 MG/DL (0.60-1.10); GLUCOSE 101 MG/DL (70-104); POTASSIUM 4.9 MMOL/L (3.5-5.1); SODIUM 143 MMOL/L (135-145); TOTAL PROTEIN 7.6 G/DL (6.4-8.2); eCRCL 34 ML/MIN; eGFR 34 ML/MIN
[2024-07-29 18:34] LABS: PRO BRAIN NATRIURETIC PEPTIDE 1210 PG/ML (0-125)
[2024-07-29 18:45] VITALS: BP 167/64; PULSE 73; RESP 14; O2SAT 95
== END 2024-07-29 19:59 | disposition left against medical advice (07) ==
LOC: ER 17:32
DX: R07.9 Chest pain, unspecified (principal); Z53.21 Procedure and treatment not carried out due to patient leaving prior to being seen by health care provider
CPT/HCPCS: 36415; 71045; 80053; 83880; 84484; 85025; 93005

== ENCOUNTER 2024-09-09 09:57 | Day surgery (SDC) | payer MEDICARE, OTHER ==
[2024-09-05 12:17] LABS: BASOPHILS % (AUTO) 0.4 % (0-1); EOSINOPHILS # (AUTO) 0.2 X10'3 (0-0.9); EOSINOPHILS % (AUTO) 2.4 % (0-6); HEMATOCRIT 43.4 % (42.0-52.0); HEMOGLOBIN 14.2 g/dl (14.0-17.9); LYMPHOCYTES # (AUTO) 1.6 X10'3 (1.1-4.8); LYMPHOCYTES % (AUTO) 25.5 % (21-51); MEAN CORPUSCULAR HEMOGLOBIN 30.2 PG (27.0-31.0); MEAN CORPUSCULAR HGB CONC 32.8 g/dL (33.0-36.5); MEAN CORPUSCULAR VOLUME 92.1 FL (78-98); MONOCYTES # (AUTO) 0.5 X10'3 (0-0.9); MONOCYTES % (AUTO) 7.7 % (2-12); NEUTROPHILS # (AUTO) 4.1 X10'3 (1.8-7.7); PLATELET COUNT 197 X10'3 (140-440); RED BLOOD COUNT 4.71 X10'6 (4.70-6.10); RED CELL DISTRIBUTION WIDTH 14.5 % (11.5-14.5); WHITE BLOOD COUNT 6.4 X10'3 (4.5-11.0)
[2024-09-05 12:29] LABS: APTT 34 SECONDS (22-32); INR 1.2 INR; PROTHROMBIN TIME 11.9 SECONDS (9.0-12.0)
[2024-09-05 12:31] LABS: ALBUMIN 3.8 G/DL (3.4-5.0); ANION GAP 10 (8-16); BLOOD UREA NITROGEN 37 MG/DL (7-18); BUN/CREATININE RATIO 19.9 (10.0-20.0); CALCIUM 8.6 MG/DL (8.5-10.1); CHLORIDE 107 MMOL/L (99-107); CHOL/HDL RATIO 2.1 (0.00-4.99); CHOLESTEROL 109 MG/DL (0-200); CREATININE 1.86 MG/DL (0.60-1.10); GLUCOSE 170 MG/DL (70-104); HDL CHOLESTEROL 51 MG/DL (35-60); LDL CHOLESTEROL 48 MG/DL (50-100); POTASSIUM 5.1 MMOL/L (3.5-5.1); SODIUM 138 MMOL/L (135-145); TRIGLYCERIDES 93 MG/DL (20-135); eGFR 36 ML/MIN
[2024-09-09] VITALS (9 sets, daily range): BP systolic 108–155; BP diastolic 50–85; PULSE 58–64; RESP 14–16; TEMP 98; O2SAT 86–97
[~2024-09-09] VITALS: Ht 175.3 cm; Wt 100.4 kg
[2024-09-09] MEDS ORDERED: diphenhydrAMINE 25mg capsule PO PRN (10:20)
[2024-09-09] MEDS ORDERED: LIDOcaine 1% (10mg/ml) 2ml vial ONE (10:52)
[2024-09-09] MEDS ORDERED: heparin 1,000unit/ml 10ml vial 10 ML ONE (10:52)
[2024-09-09] MEDS ORDERED: verapamil 2.5 mg/ml inj IV ONE (10:52)
[2024-09-09] MEDS ORDERED: iohexol 350MG/ML 100ml bottle IV ONE (10:52)
[2024-09-09] MEDS ORDERED: nitroGLYCERIN 500mcg/5mL D5W 5 ML IV ONE (10:53)
[2024-09-09] MEDS: LORazepam 0.5 MG tablet PO PRN (11:26)
[2024-09-09] MEDS: normal saline 1,000 ML IV SCH (11:26)
[2024-09-09] MEDS ORDERED: fentaNYL/PF 50MCG/1 ML 2ML syringe ONE (12:07)
[2024-09-09] MEDS ORDERED: midazolam 1 mg/ML 2ml injection ONE ×2 (12:07→13:02)
[2024-09-09] MEDS ORDERED: UBID100C16 PO (12:12)
[2024-09-09] MEDS ORDERED: HYDR25TA90 PO (12:12)
[2024-09-09] MEDS ORDERED: METO-395 PO (12:12)
[2024-09-09] MEDS ORDERED: HYDR-3972 PO (12:12)
[2024-09-09] MEDS ORDERED: NITR0.4T48 SL (12:12)
[2024-09-09] MEDS ORDERED: HYDR-3968 PO (12:12)
[2024-09-09] MEDS ORDERED: ESCI10TA PO (12:12)
[2024-09-09] MEDS ORDERED: TRAZ-251 PO (12:12)
[2024-09-09] MEDS ORDERED: CHOL500061 PO (12:12)
[2024-09-09] MEDS ORDERED: LIDO700A47 TOP (12:12)
[2024-09-09] MEDS ORDERED: TADA20TA43 PO (12:12)
[2024-09-09] MEDS ORDERED: SULF1TAB45 PO (12:12)
[2024-09-09] MEDS ORDERED: HYDR-3964 PO (12:12)
[2024-09-09] MEDS ORDERED: ISOS30TA84 PO (12:12)
[2024-09-09] MEDS ORDERED: SIMV-42 PO (12:12)
[2024-09-09] MEDS ORDERED: ZINC220T3 PO (12:12)
[2024-09-09] MEDS ORDERED: LIDOcaine 1% 30ml preserv. free vial ONE (12:48)
[2024-09-09] MEDS ORDERED: HYDROmorphone 1 mg/ml syringe ONE (13:03)
[2024-09-09] MEDS ORDERED: iohexol 350 MG/ML 50ML vial IV ONE (13:26)
[2024-09-09] MEDS ORDERED: HYDROcodone/acetaminophen 5mg/325mg tablet PO PRN (14:25)
[2024-09-09] MEDS ORDERED: HYDROcodone/acetaminophen 10/325mg tab PO PRN (14:25)
== END 2024-09-09 16:05 | disposition home or self-care (01) ==
LOC: SSTAY O 09:57
PROVIDERS: ATTEND Student in an Organized Health Care Education/Training Program
DX: I25.10 Atherosclerotic heart disease of native coronary artery without angina pectoris (principal); E78.5 Hyperlipidemia, unspecified; K21.9 Gastro-esophageal reflux disease without esophagitis; I13.0 Hypertensive heart and chronic kidney disease with heart failure and stage 1 through stage 4 chronic kidney disease, or unspecified chronic kidney disease; I50.9 Heart failure, unspecified; N18.9 Chronic kidney disease, unspecified; I48.0 Paroxysmal atrial fibrillation; Z86.73 Personal history of transient ischemic attack (TIA), and cerebral infarction without residual deficits; I25.2 Old myocardial infarction; I25.5 Ischemic cardiomyopathy; E11.22 Type 2 diabetes mellitus with diabetic chronic kidney disease; Z79.899 Other long term (current) drug therapy; Z98.890 Other specified postprocedural states
CPT/HCPCS: 36415; 80048; 80061; 82948; 85025; 85610; 85730; 93005; 93459; 99152; 99153; A6258; C1760; C1894; J1171; J1644; J2003; J2250; J3010; J3490; J7030; Q9967; Z7610; 76937